=== PATIENT | female | born 1955 | race Caucasian/White ===

== ENCOUNTER 2016-12-08 19:39 | Inpatient (IN) | payer MEDICARE ==
[2016-12-08] VITALS (12 sets, daily range): BP systolic 125–193; BP diastolic 52–81
[~2016-12-08] VITALS: Ht 157.5 cm; Wt 96.8 kg
[~2016-12-08 19:39] MED LIST: ACCU-CHEK SC; AMBIEN5 MG PO; AMITIZA8 MCG PO; AMOX/K CLAV875 M1 PO; AMOXICILLIN/CL875 MG PO; AMOXICILLIN500 MG OR; ASA LOW DOSE81 MG OR; ATIVAN0.5 MG; ATIVAN0.5 MG PO; ATORVASTATIN CA40 MG PO; BACLOFEN10 MG PO; BACTRIM DS1 TAB PO; BENTYL10 MG PO; BENTYL10 MG/5 ML PO; BUSPIRONE7.5 MG PO; CHERATUSSIN OR; CIPRO500 MG OR; CIPRO500 MG PO; CIPROFLOXACIN500 M1 PO; CIPROFLOXACN500 MG PO; CRESTOR40 MG PO; DICYCLOMINE10 MG PO; DOXYCYCL HYC100 MG PO; ENALAPRIL2.5 MG; ENALAPRIL2.5 MG PO; ENBREL50 MG/ML SC; FLAGYL500 MG OR; FLAGYL500 MG PO; FLEXERIL OR; FLONASE NASAL50 MCG; FLORASTOR250 M1 PO; FOLIC ACID1 MG PO; FOLIC ACID5 MG; GLIPIZIDE10 M2 PO; HYDROCO/APAP1 T11 PO; IMDUR30 MG PO; IMODIUM2 MG PO; INSULIN SY SC; INSULIN SY0.3 MG/36 SC; ISOSORB MONO30 MG PO; LANTUS100 MG/ML SC; LORAZEPAM0.5 MG PO; LORTAB 5/3255 MG PO; MELOXICAM7.5 MG PO; METFORMIN HCL500 M1 OR; METFORMIN HCL500 M1 PO; METFORMIN1000 MG PO; METFORMIN500 M1; METFORMIN500 M2 PO; METFORMIN500 MG PO; METHOTREXATE2.5 MG OR; METOCLOPRAMIDE H5 MG OR; METRONIDAZOL500 MG PO; METRONIDAZOLE500 MG PO; MIRALAX3350 NF PO; MUPIROCIN2 % EX; NAPROSYN500 MG PO; PAROXETINE20 MG PO; PLAQUENIL200 MG PO; PRAVACHOL40 MG PO; PREDNISONE5 MG PO; PRILOSEC20 MG/CAP PO; PRILOSEC40 MG PO; REGLAN10 MG PO; REQUIP1 MG OR; RHEUMATREX2.5 M1; TRANSDERM-SCOP1.5 MG TD; TRIAMCINOLON0.11 EX; VENTOLIN HF1 IN; ZOFRAN ODT4 MG PO; [UNRECOGNIZED DRUG - REMARK]
--- NOTE | 2016-12-08 20:25 | NUR ---
MD AT BEDSIDE AT THIS TIME. PT STATES CHEST PAIN IS A 10/10 AND PRESSURE THAT STARTED ABOUT AN HOUR BEFORE ARRIVING TO ED. AWAITING MD ORDERS.
--- NOTE | 2016-12-08 20:36 | NUR ---
PATIENT C/O NAUSEA. MD AWARE, ORDERS RECEIVED AND PATIENT MEDICATED ORDERED. WILL MONITOR FOR EFFECT.
[2016-12-08 20:42] LABS: HEMATOCRIT 47.3 % (37.0-47.0); HEMOGLOBIN 16.1 g/dl (12.0-16.0); IMMATURE GRANULOCYTES 0.3 % (0.0-1.0); MEAN CELL VOLUME 87.1 fL CALC (80.0-100.0); MEAN CORPUSCULAR HGB 29.7 pG CALC (26.0-32.0); NEUT# 4.8 thou/uL (2.00-7.15); RED BLOOD COUNT 5.43 mill/uL (4.20-5.60); RED CELL DISTRI WIDTH 13.4 % (11.5-15.5)
[2016-12-08] MEDS ORDERED: TOUJEO SOL300 UNIT/M (20:45)
[2016-12-08 20:51] LABS: ALBUMIN 4.1 g/dL (3.2-5.0); ALKALINE PHOSPHATASE 91 u/l (38-126); AMYLASE 94 u/l (30-110); ANION GAP 16 (6-22 (CALC)); BILIRUBIN, TOTAL 1.4 mg/dL (0.0-1.4); BUN 14 mg/dL (7-17); BUN/CREATININE RATIO 26 (12-20 (CALC)); CALCIUM 9.9 mg/dL (8.4-10.2); CARBON DIOXIDE 25 mmol/l (22-30); CHLORIDE 106 mmol/l (95-108); CREATININE 0.5 mg/dL (0.5-1.0); GFR > 60 ML/MIN (>=60 (CALC)); GFR FOR AFR.AMER. > 60 ML/MIN (>=60 (CALC)); GLUCOSE 280 mg/dL (65-105); LIPASE 60 u/l (23-300); POTASSIUM 3.5 mmol/l (3.5-5.1); SGOT/AST 52 u/l (14-36); SGPT/ALT 64 u/l (9-52); SODIUM 142 mmol/l (137-146); TOTAL PROTEIN 7.1 g/dL (6.3-8.2)
--- NOTE | 2016-12-08 21:00 | NUR ---
PATIENT STATES NAUSEA HAS IMPROVED. STATES CHEST PAIN IS A 7 ON 1-10 PAIN SCALE.
[2016-12-08 21:02] LABS: MYOGLOBIN 39 ng/mL (0 - 62)
--- NOTE | 2016-12-08 21:14 | NUR ---
MD AT BEDSIDE TO DISCUSS ALL RESULTS AND PLANS FOR ADMISSION.
--- NOTE | 2016-12-08 22:00 | NUR ---
REPORT GIVEN TO SYLVIE CRUZ.
--- NOTE | 2016-12-08 22:15 | NUR ---
PT STATES CHEST PAIN HAS DECREASED TO 5/10. PT TRANSPORTED TO ICU VIA STRETCHER IV NITRO INFUSING AT 10 MCG/MIN AND ON SR 78 BIOMATERIALS ENGINEER ACCOMPANIED BY SHANK INSPECTOR.
--- NOTE | 2016-12-08 22:19 | NUR ---
female pt received to ICU bed 3 via stretcher accompanied by A ANTHONY Lockhart in stable condition; ambulatory to scale then bed with steady gait; weight obtained; admission assessment completed at this time; pt alert and oriented; c/c of misternal chest pressure x4 days, worse today; chest pressure radiates to left arm and jaw assoicated with nausea, diaphoresis, feeling faint; resp even and unlabored; lungs clear; skin color wnl; o2 per nc at 2L; hr reg; strong pulses; no edema noted; sr on monitor; abd soft/distended with bs present; no bm noted per scientific writer; admits to voiding without complication; no urine to inspect at this time; #20 in lac flushed and patent; no redness or edema noted at site; ntg gtt infusing at 10mcg/min, titrated to 15mcg/min; plan of care explained; pt oriented to room and call light system; will continue to monitor
--- NOTE | 2016-12-08 23:08 | NUR ---
Dr Torres informed of pt complaints of pain; orders to be placed; will continue to monitor
--- NOTE | 2016-12-08 23:10 | NUR ---
awake resting in bed; bp 208/110, hr 69; bp correlate with left arm 202/95; medicated with apresoline iv as per orders; pt denies chest pain/headache; asymptomatic; will continue to monitor
[2016-12-09] VITALS (11 sets, daily range): BP systolic 87–120; BP diastolic 40–67
--- NOTE | 2016-12-09 00:05 | NUR ---
awake; no distress noted; iv patent; ntg gtt at 5mcg/min; admits to pain relief 06/29; sr on monitor; deny needs; call light within reach; will continue to monitor
--- NOTE | 2016-12-09 00:41 | NUR ---
awake; computer lab assistant at bedside;
--- NOTE | 2016-12-09 02:09 | NUR ---
awake; no distress noted; sr on monitor; iv patent; ntg gtt at 5mcg/min; call light within reach; will continue to monitor
--- NOTE | 2016-12-09 04:09 | NUR ---
asleep; no distress noted; resp even and unlabored; iv patent; ntg gtt at 5mcg/min; o2 per nc; sb on monitor; call light within reach; will continue to monitor
--- NOTE | 2016-12-09 06:23 | NUR ---
asleep; easy to arouse; offer complaints of midsternal chest pressure rating 2/10; deny need for pain meds at this time; iv patent; no redness or edema noted at site; ntg gtt cont at 5mcg/min; assist to bathroom; o2 per nc; bed in lowest position; call light within reach
--- NOTE | 2016-12-09 06:41 | NUR ---
pt with complaints of increased chest pressure/burning after ambulating to bathroom; medicated with morphine as per request; no n/v/diaphoresis noted; admits pain radiates to left arm, left jaw and back;
[2016-12-09 06:43] LABS: URINE BILIRUBIN - DIPSTICK NEGATIVE (NEGATIVE); URINE BLOOD DIPSTICK NEGATIVE (NEGATIVE); URINE CLARITY CLEAR; URINE COLOR YELLOW; URINE GLUCOSE - DIPSTICK >=1000 mg/dL (NEGATIVE); URINE KETONE NEGATIVE (NEGATIVE); URINE LEUK ESTERASE NEGATIVE (Negative); URINE NITRITE - DIPSTICK NEGATIVE (Negative); URINE PH 5.5 (4.5-8.0); URINE PROTEIN - DIPSTICK 30 mg/dL (NEG-TRACE); URINE SPECIFIC GRAVITY >=1.030; URINE UROBILINOGEN - DIPSTICK 0.2 E.U./dL (0.2)
[2016-12-09 06:51] LABS: URINE AMORPH SEDIMENT FEW hpf (NONE-FEW); URINE BACTERIA FEW hpf; URINE CALCIUM OXALATE CRYSTALS FEW lpf; URINE MUCUS FEW hpf (NONE-FEW); URINE RBC 0-2 RBC/hpf (0-5); URINE SQUAMOUS EPITHELIAL CELL MODERATE EPI/hpf (0-FEW)
--- NOTE | 2016-12-09 07:27 | NUR ---
TROPONIN RESULT CALLED TO MD, ORDERS GIVEN, TX INITIATED PER MD ORDER
--- NOTE | 2016-12-09 07:30 | NUR ---
PT LAYING IN BED AWAKE, A & O X3, PERRL, PT STATES "I'M HAVING SOME PRESSURE IN MY CHEST IT'S ABOUT A 2", PT ASSISTED WITH REPOSITIONING FOR COMFORT, HR 52, RESP. 18, BP 98/55, O2 99% ON 2L VIA NC, LUNG SOUNDS DIMINISHED IN BASES, 20G LAC IV WITH NS AND NITRO INFUSING AT PERSCRIBED RATE, AM ASSESSMENT COMPLETE, SEE INTERVENTIONS, SAFETY MEASURES REINFORCED, CALL CLEMENT WITHIN REACH
--- NOTE | 2016-12-09 07:35 | NUR ---
SPOKE TO KIMBER FROM [facility], GAVE PT INFORMATION, FAXED FACESHEET AND RECENT EKG TO [phone]
--- NOTE | 2016-12-09 08:15 | NUR ---
KIMBER FROM [facility] CALLED WITH ACCEPTING PHYSICIAN DR. DURAN
--- NOTE | 2016-12-09 09:15 | NUR ---
CALL PLACED TO [facility] SPOKE TO KAYLA, GAVE PT INFORMATION, ETA OF 20 MINS GIVEN
--- NOTE | 2016-12-09 09:20 | NUR ---
REPORT CALLED TO YAN AT [facility]
--- NOTE | 2016-12-09 09:32 | NUR ---
DR MENDOZA AT BEDSIDE DISCUSSING PLAN OF CARE
--- NOTE | 2016-12-09 10:07 | NUR ---
Discharge instructions given. Patient verbalizes understanding of same. Discharged in stable condition via Medical Transport to [facility] by [facility]. All belongings sent with pt.
== END 2016-12-09 10:07 | disposition short-term general hospital (02) | DRG 282 ==
LOC: ED 19:39 → ED-I 21:02 → ED 21:30 → ICU 21:31
PROVIDERS: Emergency Medicine; ADMIT Internal Medicine; ATTEND Internal Medicine
DX: I21.4 Non-ST elevation (NSTEMI) myocardial infarction (principal); E11.65 Type 2 diabetes mellitus with hyperglycemia; I11.9 Hypertensive heart disease without heart failure; I25.10 Atherosclerotic heart disease of native coronary artery without angina pectoris; E78.5 Hyperlipidemia, unspecified; Z79.4 Long term (current) use of insulin; Z79.84 Long term (current) use of oral hypoglycemic drugs; Z95.1 Presence of aortocoronary bypass graft
CPT/HCPCS: S0164

== ENCOUNTER 2017-04-05 11:51 | Observation (INO) | payer MEDICARE ==
[~2017-04-05] VITALS: Ht 157.5 cm; Wt 95.7 kg
[~2017-04-05 11:51] MED LIST changes: +TOUJEO SOL300 UNIT/M
[2017-04-05] MEDS ORDERED: METRONIDAZOL500 MG PO (12:12)
[2017-04-05] MEDS ORDERED: TYLENOL325 MG PO (12:13)
[2017-04-05] MEDS ORDERED: PLAVIX75 MG PO (12:15)
[2017-04-05] MEDS ORDERED: METO50TA52 PO (12:16)
[2017-04-05] MEDS ORDERED: TIZANIDINE HCL2 MG PO (12:17)
[2017-04-05] MEDS ORDERED: DICLOFENAC SODIUM1 % (12:18)
[2017-04-05] MEDS ORDERED: [UNRECOGNIZED DRUG - OTHER] (12:19)
[2017-04-05] MEDS ORDERED: VICTOZA18 MG/3 ML SC (12:20)
[2017-04-05] MEDS ORDERED: ASPIRIN 81 LOW81 MG ×2 (12:21→12:46)
[2017-04-05 12:32] LABS: HEMATOCRIT 45.3 % (37.0-47.0); HEMOGLOBIN 15.4 g/dl (12.0-16.0); IMMATURE GRANULOCYTES 0.3 % (0.0-1.0); MEAN CELL VOLUME 86.5 fL CALC (80.0-100.0); MEAN CORPUSCULAR HGB 29.4 pG CALC (26.0-32.0); NEUT# 1.76 thou/uL (2.00-7.15); RED BLOOD COUNT 5.24 mill/uL (4.20-5.60); RED CELL DISTRI WIDTH 13.7 % (11.5-15.5)
[2017-04-05] MEDS ORDERED: TRAMADOL HYDROC50 MG PO (12:43)
[2017-04-05] MEDS ORDERED: XANAX0.25 MG PO (12:44)
[2017-04-05] MEDS ORDERED: BIOTIN5000 MC1 PO (12:45)
[2017-04-05] MEDS ORDERED: ZESTRIL5 M1 PO (12:46)
[2017-04-05 12:47] LABS: ALBUMIN 4.1 g/dL (3.2-5.0); ALKALINE PHOSPHATASE 92 u/l (38-126); ANION GAP 15 (6-22 (CALC)); BILIRUBIN, TOTAL 0.7 mg/dL (0.0-1.4); BUN 15 mg/dL (7-17); BUN/CREATININE RATIO 36 (12-20 (CALC)); CALCIUM 9.9 mg/dL (8.4-10.2); CARBON DIOXIDE 25 mmol/l (22-30); CHLORIDE 103 mmol/l (95-108); CREATININE 0.4 mg/dL (0.5-1.0); GFR > 60 ML/MIN (>=60 (CALC)); GFR FOR AFR.AMER. > 60 ML/MIN (>=60 (CALC)); GLUCOSE 246 mg/dL (65-105); POTASSIUM 4.1 mmol/l (3.5-5.1); SGOT/AST 59 u/l (14-36); SGPT/ALT 59 u/l (9-52); SODIUM 140 mmol/l (137-146); TOTAL PROTEIN 7.3 g/dL (6.3-8.2)
[2017-04-05 12:59] LABS: MYOGLOBIN 32 ng/mL (0 - 62)
[2017-04-05 15:08] LABS: URINE BILIRUBIN - DIPSTICK NEGATIVE (NEGATIVE); URINE BLOOD DIPSTICK NEGATIVE (NEGATIVE); URINE COLOR YELLOW; URINE GLUCOSE - DIPSTICK 500 mg/dL (NEGATIVE); URINE KETONE NEGATIVE (NEGATIVE); URINE LEUK ESTERASE NEGATIVE (NEGATIVE); URINE NITRITE - DIPSTICK NEGATIVE (Negative); URINE PH 6.5 (4.5-8.0); URINE PROTEIN - DIPSTICK NEGATIVE (NEG-TRACE); URINE SPECIFIC GRAVITY 1.015
[2017-04-05 15:09] LABS: URINE CLARITY CLEAR
[2017-04-05 16:16] VITALS: BP 141/82
[2017-04-05 19:25] VITALS: BP 129/76
[2017-04-06 00:25] VITALS: BP 101/57
[2017-04-06 05:07] VITALS: BP 109/68
[2017-04-06 06:15] LABS: HEMATOCRIT 45.1 % (37.0-47.0); HEMOGLOBIN 15.4 g/dl (12.0-16.0); MEAN CELL VOLUME 87.2 fL CALC (80.0-100.0); MEAN CORPUSCULAR HGB 29.8 pG CALC (26.0-32.0); MEAN CORPUSCULAR HGB CONC 34.1 g/L CALC (32.0-36.0); RED BLOOD COUNT 5.17 mill/uL (4.20-5.60); RED CELL DISTRI WIDTH 13.6 % (11.5-15.5)
[2017-04-06 06:20] LABS: CHOLESTEROL HDL RATIO 2.7 (<4.4 (CALC))
[2017-04-06 09:01] VITALS: BP 146/68
[2017-04-06] MEDS ORDERED: LISINOPRIL10 MG PO (11:42)
[2017-04-06] MEDS ORDERED: ROSUVASTATIN CA10 MG PO (11:43)
== END 2017-04-06 12:22 | disposition home or self-care (01) ==
LOC: ED 11:51 → ED-I 13:30 → ED 14:09 → MS2 14:10
PROVIDERS: Emergency Medicine; ADMIT Internal Medicine; ATTEND Internal Medicine
DX: R07.89 Other chest pain (principal); I10 Essential (primary) hypertension; E11.9 Type 2 diabetes mellitus without complications; M06.9 Rheumatoid arthritis, unspecified; F41.9 Anxiety disorder, unspecified; I25.10 Atherosclerotic heart disease of native coronary artery without angina pectoris; I25.2 Old myocardial infarction; E78.5 Hyperlipidemia, unspecified; R06.00 Dyspnea, unspecified; Z79.4 Long term (current) use of insulin; Z68.38 Body mass index [BMI] 38.0-38.9, adult; Z87.442 Personal history of urinary calculi; Z95.1 Presence of aortocoronary bypass graft; Z87.891 Personal history of nicotine dependence; Z79.82 Long term (current) use of aspirin; Z95.5 Presence of coronary angioplasty implant and graft; Z79.02 Long term (current) use of antithrombotics/antiplatelets

== ENCOUNTER 2018-05-24 00:11 | Observation (INO) | payer MEDICARE ==
[~2018-05-24] VITALS: Ht 157.5 cm; Wt 96.3 kg
[~2018-05-24 00:11] MED LIST changes: +ASPIRIN 81 LOW81 MG; +BIOTIN5000 MC1 PO; +DICLOFENAC SODIUM1 %; +LISINOPRIL10 MG PO; +METO50TA52 PO; +PLAVIX75 MG PO; +ROSUVASTATIN CA10 MG PO; +TIZANIDINE HCL2 MG PO; -TOUJEO SOL300 UNIT/M; +TOUJEO SOL300 UNIT/M SC; +TRAMADOL HYDROC50 MG PO; +TYLENOL325 MG PO; +VICTOZA18 MG/3 ML SC; +XANAX0.25 MG PO; +ZESTRIL5 M1 PO; +[UNRECOGNIZED DRUG - OTHER]
--- NOTE | 2018-05-24 00:16 | NUR ---
PT WHEELED TO ROOM 13 AND EKG OBTAINED.
[2018-05-24 01:10] LABS: HEMATOCRIT 45.4 % (37.0-47.0); HEMOGLOBIN 15.7 g/dl (12.0-16.0); MEAN CORPUSCULAR HGB 29.7 pG CALC (26.0-32.0); MEAN CORPUSCULAR HGB CONC 34.6 g/L CALC (32.0-36.0); NEUT# 2.6 thou/uL (2.00-7.15); RED BLOOD COUNT 5.28 mill/uL (4.20-5.60); RED CELL DISTRI WIDTH 13.4 % (11.5-15.5)
--- NOTE | 2018-05-24 01:10 | NUR ---
MEDICATED PT WITH TORADOL AND MORPHINE FOR PAIN AND NTG OINTMENT TO LEFT UPPER CHEST. CALL CLEMENT IN REACH.
[2018-05-24 01:21] LABS: ALKALINE PHOSPHATASE 92 u/l (38-126); AMYLASE 61 u/l (30-110); ANION GAP 15 (6-22 (CALC)); BILIRUBIN, TOTAL 0.9 mg/dL (0.0-1.4); BUN 13 mg/dL (7-17); BUN/CREATININE RATIO 36 (12-20 (CALC)); CARBON DIOXIDE 25 mmol/l (22-30); CHLORIDE 102 mmol/l (95-108); CREATININE 0.4 mg/dL (0.5-1.0); GFR > 60 ML/MIN (>=60 (CALC)); GFR FOR AFR.AMER. > 60 ML/MIN (>=60 (CALC)); LIPASE 147 u/l (23-300); POTASSIUM 3.8 mmol/l (3.5-5.1); SGOT/AST 50 u/l (14-36); SODIUM 138 mmol/l (137-146); TOTAL PROTEIN 7.1 g/dL (6.3-8.2)
[2018-05-24 01:32] LABS: MYOGLOBIN 25 ng/mL (0 - 62)
[2018-05-24 01:40] LABS: ACT PARTIAL THROMBO TIME 26.2 SECONDS (20.0-32.5); D-DIMER 0.55 mg/L (0.19-0.60); INTERNATIONAL NORMALIZED RATIO 1.1 RATIO (0.7-1.3); PROTHROMBIN TIME 11.5 SECONDS (9.0-12.5)
--- NOTE | 2018-05-24 02:01 | NUR ---
PAIN DOWN TO 4/10. NO ADVERSE REACTION TO MEDICATION B/P 114/61. PT CONSTANTLY LOOKING UP AT MONITOR.
--- NOTE | 2018-05-24 02:10 | NUR ---
ALL RESULTS ON CHART- PT TO BE ADMITTED. INFORMED PT CARDIAC ENZYMES ARE NEGATIVE AND PT STATED SHE WAS HERE IN 2017 AND WAS TOLD THE SAME THING THEN SHE WAS SENT TO [facility] AND HEART CATH DONE.
[2018-05-24] MEDS ORDERED: NADOLOL20 MG PO (02:11)
--- NOTE | 2018-05-24 03:18 | NUR ---
REPORT GIVEN TO ANTHONY REED
--- NOTE | 2018-05-24 03:32 | NUR ---
Admission Note Report Given to: ANTHONY REED Transported by: X Wheelchair Stretcher Transported with: X Nurse Transporter X Patent IV O2 X Disability Benefits Specialist
[2018-05-24 03:35] VITALS: BP 124/67
--- NOTE | 2018-05-24 03:35 | NUR ---
PT ARRIVED TO FLOOR VIA STRETCHER ACCOMPANIED BY ED NURSE. PT APPEARS TO BE IN STABLE CONDITION AT THIS TIME. PT SELF AMBULATED TO RESTROOM, STANDING SCALE AND TO THE BED. AIDE IS IN W/PT OBTAINING V/S, WEIGHT AND ORIENTING PT TO ROOM,CALL SYSTEM, LIGHTS, TV AND BED.
--- NOTE | 2018-05-24 04:10 | NUR ---
PT ASSESSED, LUNG SOUNDS ARE DIMINISHED, ABD SOFT/TENDER IN UPPER QUADRANTS BILAT, TRACE EDEMA TO LOWER EXT BILAT, SKIN INTACT, NEURO'S INTACT, LOCX4, DENIES PAIN/N/V/SOB AT THIS TIME. REPORTS THAT MORPHINE GIVEN IN ED HELPED. WILL CONTINUE TO MONITOR, PT ENCOURAGED TO CALL W/ANY CHANGES OR SYMPTOMS. CALL LIGHT AT BEDSIDE. POC DISCUSSED AT THIS TIME.
--- NOTE | 2018-05-24 06:07 | NUR ---
PT MEDICATED ORDERS PROVIDE. PT DENIES ANY SOB OR PAIN AT THIS TIME. LAB WAS JUST IN W/PT AND NOW RESPIRATORY FOR EKG. WILL CONTINUE TO MONITOR. PT DENIES ANY OTHER NEEDS AT THIS TIME.
[2018-05-24 08:00] VITALS: BP 110/56
--- NOTE | 2018-05-24 08:00 | NUR ---
PT RESTING IN THE BED, NO COMPLAINTS OF CHEST PAIN OR SHORTNESS OF BREATH. SECOND TROPONIN LEVEL DRAWN, AWAITING RESULTS.
--- NOTE | 2018-05-24 12:00 | NUR ---
PT SEEN BY NURSE PRACTITIONER, PROVIDED NTG SL WHICH MADE HER PAIN GO AWAY.
[2018-05-24 12:07] VITALS: BP 140/68
[2018-05-24 14:09] LABS: URINE BILIRUBIN - DIPSTICK NEGATIVE (NEGATIVE); URINE BLOOD DIPSTICK NEGATIVE (NEGATIVE); URINE GLUCOSE - DIPSTICK >=1000 mg/dL (NEGATIVE); URINE KETONE NEGATIVE (NEGATIVE); URINE LEUK ESTERASE NEGATIVE (NEGATIVE); URINE NITRITE - DIPSTICK NEGATIVE (Negative); URINE PH 5.5 (4.5-8.0); URINE PROTEIN - DIPSTICK NEGATIVE (NEG-TRACE); URINE SPECIFIC GRAVITY >=1.030; URINE UROBILINOGEN - DIPSTICK 0.2 E.U./dL (0.2)
[2018-05-24 14:11] LABS: URINE COLOR DK. YELLOW
[2018-05-24 16:02] VITALS: BP 113/52
--- NOTE | 2018-05-24 17:45 | NUR ---
PT CONTNUES WITH RIGHT SHOULDER PAIN. EKG DONE, ULTRAM AND, LATER, LORTAB PROVIDED FOR RELIEF. PT ENCOURAGED TO SIT IN CHAIR FOR A WHILE.
--- NOTE | 2018-05-24 19:18 | NUR ---
BEDSIDE REPORT RECEIVED FROM DAY NURSE. UPON ENTERING ROOM PT WAS UP WALKING AROUND PLUGGING IN CELL PHONE. SHE REPORTS MILD DISCOMFORT IN RIGHT SHOULDER RADIATING DOWN RIGHT ARM. WILL FOLLOW-UP W/FULL ASSESSMENT AND MEDICATIONS ORDERS PROVIDE.
[2018-05-24 19:25] VITALS: BP 103/65
--- NOTE | 2018-05-24 20:30 | NUR ---
PT MEDICATED ORDERS PROVIDE. PT IS IN CHAIR WATCHING TV AND READING. POC AND MEDICATIONS DISCUSSED W/PT. ICE PROVIDED. DENIES ANY OTHER NEEDS, CALL LIGHT IN HAND
--- NOTE | 2018-05-24 23:55 | NUR ---
PT MEDICATED FOR PAIN REPORTED 10/10 IN RIGHT SHOULDER, NO S/O DISTRESS, PT IS AWAKE, IN HIGH FOWLERS POSITION, APPEARS CALM AND IS WATCHING TV. V/S ASSESSED, BP 114/58, HR 62, 02SAT 94% ON RA, TEMP 97.7. WILL CONTINUE TO MONITOR.
[2018-05-24 23:57] VITALS: BP 114/58
--- NOTE | 2018-05-25 02:25 | NUR ---
PT APPEARS TO BE SLEEPING AT THIS TIME. NO S/O DISTRESS. CALL LIGHT AT SIDE.
[2018-05-25 04:05] VITALS: BP 99/61
[2018-05-25 06:08] LABS: HEMATOCRIT 42.3 % (37.0-47.0); HEMOGLOBIN 14.2 g/dl (12.0-16.0); IMMATURE GRANULOCYTES 0.3 % (0.0-5.0); MEAN CELL VOLUME 88.3 fL CALC (80.0-100.0); MEAN CORPUSCULAR HGB 29.6 pG CALC (26.0-32.0); MEAN CORPUSCULAR HGB CONC 33.6 g/L CALC (32.0-36.0); NEUT# 1.83 thou/uL (2.00-7.15); RED BLOOD COUNT 4.79 mill/uL (4.20-5.60); RED CELL DISTRI WIDTH 13.5 % (11.5-15.5)
[2018-05-25 06:33] LABS: ALBUMIN 3.2 g/dL (3.2-5.0); ALKALINE PHOSPHATASE 68 u/l (38-126); AMYLASE 48 u/l (30-110); ANION GAP 11 (6-22 (CALC)); BILIRUBIN, TOTAL 0.9 mg/dL (0.0-1.4); BUN 18 mg/dL (7-17); BUN/CREATININE RATIO 41 (12-20 (CALC)); CARBON DIOXIDE 26 mmol/l (22-30); CHLORIDE 103 mmol/l (95-108); CREATININE 0.4 mg/dL (0.5-1.0); GFR > 60 ML/MIN (>=60 (CALC)); GFR FOR AFR.AMER. > 60 ML/MIN (>=60 (CALC)); LIPASE 97 u/l (23-300); MAGNESIUM 1.4 mg/dL (1.6-2.3); SGOT/AST 44 u/l (14-36); SODIUM 137 mmol/l (137-146); TOTAL PROTEIN 5.9 g/dL (6.3-8.2)
[2018-05-25 07:51] VITALS: BP 96/46
--- NOTE | 2018-05-25 07:58 | NUR ---
REPORT RECEIVED FROM ANTHONY REED. PT SITTING UPRIGHT IN BED. DENIES CHEST PAIN. REPORTS LROM AND SORENESS TO RIGHT ARM/SHOULDER. REPORTING OF CONCERNS ENCORUAGED. PLAN OF CARE DISCUSSED. CALL LIGHT REVIEWED AND IN REACH. PT STATES UNDERSTANDING.
[2018-05-25 11:30] VITALS: BP 114/52
--- NOTE | 2018-05-25 13:05 | NUR ---
DR. LINDER AND AMARILIS BALTAZAR IN TO SEE PT AT THIS TIME.
--- NOTE | 2018-05-25 16:27 | NUR ---
PT SITTING ON SIDE OF BED. VISITOR PRESENT. PT INQUIRING ABOUT CHF. DISEASE PROCESS AND TX REVIEWED W/ PT. PT STATES UNDERSTANDING.
[2018-05-25 16:57] VITALS: BP 106/60
[2018-05-25 19:27] VITALS: BP 122/71
--- NOTE | 2018-05-25 19:30 | NUR ---
PT MEDICATED FOR PAIN AND PM MEDS ORDERED. PAIN REPORTED 7/10 IN R.FLANK AND RIGHT UPPER SHOULDER. PT IS HIGH FOWLERS POSITION W/LIGHTS OUT WATCHING THE Datical GAME ON TV. PT ASSESSED, LUNG SOUNDS DIMINISHED THROUGHOUT/CLEAR UPPER LOBES BILAT. ABD TENDER IN BILAT UPPER QUADS AND RIGHT LQ, DIST/SOFT W/HYPOACTIVE BOWEL SOUND. REPORTS BM 1X TODAY NORMAL IN APPEARANCE. NO S/O DISTRESS NOTED AT THIS TIME. PT DENIES ANY OTHER NEEDS AND CALL LIGHT IN HAND.
--- NOTE | 2018-05-25 21:40 | NUR ---
PT MEDICATED ORDERS PROVIDE FOR BLOOD SUGAR 224. PT DENIES ANY OTHER NEEDS AT THIS TIME. REPORTS RELIEF FROM PAIN FROM PAIN MEDICATIONS 2/10 AT THIS TIME. CALL LIGHT IN HAND, LIGHTS ARE DOWN LOW, TV ON.
[2018-05-26 00:12] VITALS: BP 121/79
--- NOTE | 2018-05-26 02:40 | NUR ---
PT APPEARS TO BE SLEEPING AT THIS TIME. DID NOT AWAKE TO MY ENTERING ROOM. NO S/O DISTRESS NOTED. CALL LIG IS AT BEDSIDE.
[2018-05-26 04:15] VITALS: BP 115/66
[2018-05-26 05:29] LABS: HEMATOCRIT 44.7 % (37.0-47.0); HEMOGLOBIN 15.1 g/dl (12.0-16.0); IMMATURE GRANULOCYTES 0.3 % (0.0-5.0); MEAN CELL VOLUME 88.2 fL CALC (80.0-100.0); MEAN CORPUSCULAR HGB 29.8 pG CALC (26.0-32.0); MEAN CORPUSCULAR HGB CONC 33.8 g/L CALC (32.0-36.0); NEUT# 1.6 thou/uL (2.00-7.15); RED BLOOD COUNT 5.07 mill/uL (4.20-5.60); RED CELL DISTRI WIDTH 13.2 % (11.5-15.5)
[2018-05-26 05:51] LABS: ALBUMIN 3.5 g/dL (3.2-5.0); ALKALINE PHOSPHATASE 72 u/l (38-126); AMYLASE 51 u/l (30-110); ANION GAP 10 (6-22 (CALC)); BUN 16 mg/dL (7-17); BUN/CREATININE RATIO 41 (12-20 (CALC)); CARBON DIOXIDE 30 mmol/l (22-30); CHLORIDE 101 mmol/l (95-108); CREATININE 0.4 mg/dL (0.5-1.0); GFR > 60 ML/MIN (>=60 (CALC)); GFR FOR AFR.AMER. > 60 ML/MIN (>=60 (CALC)); LIPASE 96 u/l (23-300); MAGNESIUM 1.6 mg/dL (1.6-2.3); SGOT/AST 39 u/l (14-36); SODIUM 137 mmol/l (137-146); TOTAL PROTEIN 6.3 g/dL (6.3-8.2)
[2018-05-26 07:54] VITALS: BP 122/57
--- NOTE | 2018-05-26 08:03 | NUR ---
SHIFT CHANGE REPORT, PT SLEEPING LIGHTLY BUT AWAKENED TO VERBAL STIMULI, ORIENTED, C/O TIGHTNESS TO CHEST, TELE MONITOR IN PLACE, WILL CONTINUE TO MONITOR.
[2018-05-26 11:45] VITALS: BP 124/65
--- NOTE | 2018-05-26 11:56 | NUR ---
RESTING IN BED, DR KAILASH SELBY, DISCUSSED PLAN OF CARE TO D/C TODAY ON HOME MEDS AND FOLLOW-UP WITH INDUSTRIAL ELECTRICAL TECHNICIAN AND CENTRAL SUPPLY WORKER, PT STATED UNDERSTANDING.
--- NOTE | 2018-05-26 15:31 | NUR ---
Discharge instructions given. Patient verbalizes understanding of same. Discharged in good condition via Ambulatory to Home with family. All belongings sent with pt. REQUESTED TO AMBULATE OFF UNIT.
== END 2018-05-26 15:41 | disposition home or self-care (01) ==
LOC: ED 00:11 → ED-I 01:00 → ED 02:10 → MS2 02:11
PROVIDERS: Family Medicine; Nurse Practitioner Family; ADMIT Internal Medicine Nephrology; ATTEND Internal Medicine Nephrology
DX: R07.89 Other chest pain (principal); I25.10 Atherosclerotic heart disease of native coronary artery without angina pectoris; K76.6 Portal hypertension; K74.60 Unspecified cirrhosis of liver; E78.5 Hyperlipidemia, unspecified; E11.9 Type 2 diabetes mellitus without complications; K21.9 Gastro-esophageal reflux disease without esophagitis; I11.0 Hypertensive heart disease with heart failure; I50.9 Heart failure, unspecified; J44.9 Chronic obstructive pulmonary disease, unspecified; K75.81 Nonalcoholic steatohepatitis (NASH); I25.2 Old myocardial infarction; E66.9 Obesity, unspecified; Z68.39 Body mass index [BMI] 39.0-39.9, adult; Z95.5 Presence of coronary angioplasty implant and graft; Z95.1 Presence of aortocoronary bypass graft; Z87.891 Personal history of nicotine dependence; Z90.49 Acquired absence of other specified parts of digestive tract; Z79.4 Long term (current) use of insulin; R06.02 Shortness of breath
CPT/HCPCS: J3475

== ENCOUNTER → 2018-06-12 | Outpatient (REF) | payer MEDICARE ==
[~2018-06-12] MED LIST changes: +NADOLOL20 MG PO
== END | disposition home or self-care (01) ==
LOC: ULTRASND 12:38
PROVIDERS: ATTEND Nurse Practitioner
DX: R60.0 Localized edema (principal); M79.89 Other specified soft tissue disorders; M79.605 Pain in left leg

== ENCOUNTER 2019-07-01 | Emergency (ER) | payer MEDICARE ==
[2019-07-01 15:11] LABS: URINE BILIRUBIN - DIPSTICK NEGATIVE (NEGATIVE); URINE BLOOD DIPSTICK TRACE-INTACT (NEGATIVE); URINE COLOR YELLOW; URINE GLUCOSE - DIPSTICK >=1000 mg/dL (NEGATIVE); URINE KETONE NEGATIVE (NEGATIVE); URINE LEUK ESTERASE NEGATIVE (NEGATIVE); URINE NITRITE - DIPSTICK NEGATIVE (Negative); URINE PROTEIN - DIPSTICK TRACE mg/dL (NEG-TRACE); URINE SPECIFIC GRAVITY >=1.030; URINE UROBILINOGEN - DIPSTICK 0.2 E.U./dL (0.2)
[2019-07-01 15:18] LABS: HEMATOCRIT 49.4 % (37.0-47.0); HEMOGLOBIN 16.5 g/dl (12.0-16.0); IMMATURE GRANULOCYTES 0.1 % (0.0-5.0); MEAN CELL VOLUME 87.3 fL CALC (80.0-100.0); MEAN CORPUSCULAR HGB 29.2 pG CALC (26.0-32.0); MEAN CORPUSCULAR HGB CONC 33.4 g/L CALC (32.0-36.0); NEUT# 5.9 thou/uL (2.00-7.15); RED BLOOD COUNT 5.66 mill/uL (4.20-5.60)
[2019-07-01 15:25] LABS: ALBUMIN 4.5 g/dL (3.2-5.0); ALKALINE PHOSPHATASE 111 u/l (38-126); AMYLASE 66 u/l (30-110); ANION GAP 15 (6-22 (CALC)); BUN 17 mg/dL (8-23); BUN/CREATININE RATIO 63 (12-20 (CALC)); CARBON DIOXIDE 21 mmol/l (22-30); CHLORIDE 103 mmol/l (95-108); CREATININE 0.3 mg/dL (0.5-1.0); GFR > 60 ML/MIN (>=60 (CALC)); GFR FOR AFR.AMER. > 60 ML/MIN (>=60 (CALC)); LIPASE 40 u/l (23-300); POTASSIUM 4.8 mmol/l (3.5-5.1); SGOT/AST 65 u/l (9-36); SODIUM 134 mmol/l (137-146); TOTAL PROTEIN 8.2 g/dL (6.3-8.2)
[2019-07-01 15:32] LABS: BILIRUBIN, TOTAL 1.8 mg/dL (0.0-1.4)
== END 2019-07-01 17:55 | disposition home or self-care (01) ==
PROVIDERS: Family Medicine
DX: K52.9 Noninfective gastroenteritis and colitis, unspecified (principal); I10 Essential (primary) hypertension; E11.9 Type 2 diabetes mellitus without complications; K74.60 Unspecified cirrhosis of liver; I25.2 Old myocardial infarction; Z95.5 Presence of coronary angioplasty implant and graft; Z79.4 Long term (current) use of insulin; Z95.1 Presence of aortocoronary bypass graft
CPT/HCPCS: Q9967

== ENCOUNTER 2019-09-19 06:48 | Emergency (ER) | payer MEDICARE ==
[2019-09-19 07:21] LABS: HEMATOCRIT 41.7 % (37.0-47.0); HEMOGLOBIN 13.9 g/dl (12.0-16.0); MEAN CELL VOLUME 88.2 fL CALC (80.0-100.0); MEAN CORPUSCULAR HGB 29.4 pG CALC (26.0-32.0); MEAN CORPUSCULAR HGB CONC 33.3 g/dL CAL (32.0-36.0); NEUT# 1.89 thou/uL (2.00-7.15); RED BLOOD COUNT 4.73 mill/uL (4.20-5.60); RED CELL DISTRI WIDTH 13.2 % (11.5-15.5)
[2019-09-19] MEDS ORDERED: PROTONIX40 M2 PO (07:26)
[2019-09-19] MEDS ORDERED: ATIVAN0.5 MG PO (07:27)
[2019-09-19] MEDS ORDERED: GABAPENTIN100 MG PO (07:27)
[2019-09-19] MEDS ORDERED: TIZANIDINE2 MG PO (07:28)
[2019-09-19] MEDS ORDERED: LISINOPRIL10 MG PO (07:29)
[2019-09-19 07:35] LABS: INTERNATIONAL NORMALIZED RATIO 1.1 RATIO (0.7-1.3); PROTHROMBIN TIME 11.6 SECONDS (9.0-12.5)
[2019-09-19 07:36] LABS: ALBUMIN 3.7 g/dL (3.2-5.0); ALKALINE PHOSPHATASE 79 u/l (38-126); AMYLASE 79 u/l (30-110); ANION GAP 9 (6-22 (CALC)); BILIRUBIN, TOTAL 0.6 mg/dL (0.0-1.4); BUN 14 mg/dL (8-23); BUN/CREATININE RATIO 42 (12-20 (CALC)); CARBON DIOXIDE 27 mmol/l (22-30); CHLORIDE 104 mmol/l (95-108); CREATININE 0.3 mg/dL (0.5-1.0); GFR > 60 ML/MIN (>=60 (CALC)); GFR FOR AFR.AMER. > 60 ML/MIN (>=60 (CALC)); LIPASE 68 u/l (23-300); POTASSIUM 3.8 mmol/l (3.5-5.1); SGOT/AST 43 u/l (9-36); SODIUM 136 mmol/l (137-146); TOTAL PROTEIN 6.9 g/dL (6.3-8.2)
[2019-09-19 07:48] LABS: MYOGLOBIN 20 ng/mL (0 - 62)
[2019-09-19 08:47] LABS: URINE BILIRUBIN - DIPSTICK NEGATIVE (NEGATIVE); URINE BLOOD DIPSTICK NEGATIVE (NEGATIVE); URINE COLOR YELLOW; URINE GLUCOSE - DIPSTICK NEGATIVE (NEGATIVE); URINE KETONE NEGATIVE (NEGATIVE); URINE LEUK ESTERASE NEGATIVE (NEGATIVE); URINE NITRITE - DIPSTICK NEGATIVE (Negative); URINE PROTEIN - DIPSTICK NEGATIVE (NEG-TRACE); URINE SPECIFIC GRAVITY 1.025
[2019-09-19] MEDS ORDERED: ULTRAM50 M1 PO (09:27)
[2019-09-19] MEDS ORDERED: ONDANSETRON4 MG PO ×2 (09:27)
[2019-09-19 09:41] VITALS: BP 113/43
== END 2019-09-19 09:41 | disposition home or self-care (01) ==
LOC: ED 06:48
PROVIDERS: Emergency Medicine
DX: K52.9 Noninfective gastroenteritis and colitis, unspecified (principal); K74.60 Unspecified cirrhosis of liver; I10 Essential (primary) hypertension; E11.9 Type 2 diabetes mellitus without complications; I25.2 Old myocardial infarction; Z95.5 Presence of coronary angioplasty implant and graft; Z79.4 Long term (current) use of insulin

== ENCOUNTER 2019-10-22 09:06 | Emergency (ER) | payer MEDICARE ==
[~2019-10-22] VITALS: Ht 157.5 cm; Wt 93.0 kg
[~2019-10-22 09:06] MED LIST changes: +GABAPENTIN100 MG PO; +ONDANSETRON4 MG PO; +PROTONIX40 M2 PO; +TIZANIDINE2 MG PO; +ULTRAM50 M1 PO
[2019-10-22] MEDS ORDERED: CIPROFLOXACN500 MG PO ×2 (09:55)
[2019-10-22] MEDS ORDERED: BACTRIM DS1 TAB PO ×2 (09:55)
[2019-10-22] MEDS ORDERED: ZOFRAN4 M1 PO (10:44)
[2019-10-22 11:16] VITALS: BP 108/68
[2019-10-23] MEDS ORDERED: LISINOPRIL5 MG PO (16:31)
[2019-10-23] MEDS ORDERED: ASPIRIN 8181 MG PO (16:34)
[2019-10-23] MEDS ORDERED: LANTUS SOL100 UNIT/M SC (16:38)
== END 2019-10-22 11:15 | disposition home or self-care (01) ==
LOC: ED 09:06
PROC: 0U9MXZZ Drainage of Vulva, External Approach (ICD-10-PCS; principal; 2019-10-22)
DX: N76.4 Abscess of vulva (principal); I10 Essential (primary) hypertension; E11.9 Type 2 diabetes mellitus without complications; I25.2 Old myocardial infarction; B95.62 Methicillin resistant Staphylococcus aureus infection as the cause of diseases classified elsewhere; Z95.1 Presence of aortocoronary bypass graft; Z95.5 Presence of coronary angioplasty implant and graft; Z79.4 Long term (current) use of insulin; Z88.1 Allergy status to other antibiotic agents

== ENCOUNTER 2019-10-23 13:44 | Inpatient (IN) | payer MEDICARE ==
[~2019-10-23] VITALS: Ht 157.5 cm; Wt 96.8 kg
[~2019-10-23 13:44] MED LIST changes: +ZOFRAN4 M1 PO
[2019-10-23 15:01] LABS: GFR > 60 ML/MIN (>=60 (CALC)); GFR FOR AFR.AMER. > 60 ML/MIN (>=60 (CALC))
[2019-10-23 15:03] LABS: HEMOGLOBIN 14.6 g/dl (12.0-16.0); IMMATURE GRANULOCYTES 0.1 % (0.0-5.0); MEAN CELL VOLUME 88.7 fL CALC (80.0-100.0); MEAN CORPUSCULAR HGB 29.4 pG CALC (26.0-32.0); MEAN CORPUSCULAR HGB CONC 33.2 g/dL CAL (32.0-36.0); NEUT# 6.02 thou/uL (2.00-7.15); RED BLOOD COUNT 4.96 mill/uL (4.20-5.60); RED CELL DISTRI WIDTH 13.1 % (11.5-15.5)
[2019-10-23 15:22] LABS: ALKALINE PHOSPHATASE 100 u/l (38-126); ANION GAP 11 (6-22 (CALC)); BUN 12 mg/dL (8-23); BUN/CREATININE RATIO 28 (12-20 (CALC)); CARBON DIOXIDE 27 mmol/l (22-30); CHLORIDE 99 mmol/l (95-108); CREATININE 0.4 mg/dL (0.5-1.0); GFR > 60 ML/MIN (>=60 (CALC)); GFR FOR AFR.AMER. > 60 ML/MIN (>=60 (CALC)); POTASSIUM 4.1 mmol/l (3.5-5.1); SGOT/AST 41 u/l (9-36); SODIUM 133 mmol/l (137-146)
[2019-10-23 15:32] LABS: BILIRUBIN, TOTAL 1.4 mg/dL (0.0-1.4)
[2019-10-23] MEDS ORDERED: LISINOPRIL5 MG PO (16:31)
[2019-10-23] MEDS ORDERED: ASPIRIN 8181 MG PO (16:34)
[2019-10-23] MEDS ORDERED: LANTUS SOL100 UNIT/M SC (16:38)
[2019-10-23 18:27] VITALS: BP 126/73
[2019-10-24 04:05] VITALS: BP 108/62
[2019-10-24 07:35] VITALS: BP 132/75
[2019-10-24 14:45] VITALS: BP 108/95
[2019-10-24 18:46] VITALS: BP 152/84
[2019-10-25 03:55] VITALS: BP 98/55
[2019-10-25 07:42] VITALS: BP 101/48
[2019-10-25 09:53] VITALS: BP 103/42
[2019-10-25 15:00] VITALS: BP 113/70
[2019-10-25 19:15] VITALS: BP 98/55
[2019-10-26 03:12] VITALS: BP 112/56
[2019-10-26 07:55] VITALS: BP 114/57
[2019-10-26 10:30] VITALS: BP 167/110
[2019-10-26 15:00] VITALS: BP 148/67
[2019-10-26 20:16] VITALS: BP 152/82
[2019-10-27] VITALS (10 sets, daily range): BP systolic 112–152; BP diastolic 55–76
[2019-10-27 07:28] LABS: HEMATOCRIT 43.6 % (37.0-47.0); HEMOGLOBIN 14.6 g/dl (12.0-16.0); IMMATURE GRANULOCYTES 0.7 % (0.0-5.0); MEAN CELL VOLUME 87.6 fL CALC (80.0-100.0); MEAN CORPUSCULAR HGB 29.3 pG CALC (26.0-32.0); MEAN CORPUSCULAR HGB CONC 33.5 g/dL CAL (32.0-36.0); NEUT# 2.79 thou/uL (2.00-7.15); RED BLOOD COUNT 4.98 mill/uL (4.20-5.60); RED CELL DISTRI WIDTH 13.1 % (11.5-15.5)
[2019-10-27 08:01] LABS: ANION GAP 11 (6-22 (CALC)); BUN 8 mg/dL (8-23); BUN/CREATININE RATIO 20 (12-20 (CALC)); CARBON DIOXIDE 25 mmol/l (22-30); CHLORIDE 106 mmol/l (95-108); CREATININE 0.4 mg/dL (0.5-1.0); GFR > 60 ML/MIN (>=60 (CALC)); GFR FOR AFR.AMER. > 60 ML/MIN (>=60 (CALC)); POTASSIUM 3.8 mmol/l (3.5-5.1); SODIUM 138 mmol/l (137-146)
[2019-10-28 04:10] VITALS: BP 99/47
[2019-10-28 07:34] VITALS: BP 114/51
[2019-10-28 15:00] VITALS: BP 122/48
[2019-10-28 19:20] VITALS: BP 122/63
[2019-10-29 03:55] VITALS: BP 130/67
[2019-10-29 09:20] VITALS: BP 125/65
[2019-10-29 11:39] LABS: CREATININE 2.1 mg/dL (0.5-1.0)
[2019-10-29 15:00] VITALS: BP 153/78
[2019-10-29 19:10] VITALS: BP 140/72
[2019-10-30 03:35] VITALS: BP 133/74
[2019-10-30 07:45] VITALS: BP 117/54
[2019-10-30 10:18] LABS: CREATININE 2.5 mg/dL (0.5-1.0)
[2019-10-30 16:43] VITALS: BP 147/73
[2019-10-30 19:11] VITALS: BP 158/84
[2019-10-31 04:30] VITALS: BP 106/72
[2019-10-31 04:36] LABS: MEAN CELL VOLUME 89.6 fL CALC (80.0-100.0); MEAN CORPUSCULAR HGB 29.3 pG CALC (26.0-32.0); MEAN CORPUSCULAR HGB CONC 32.7 g/dL CAL (32.0-36.0); RED BLOOD COUNT 3.93 mill/uL (4.20-5.60); RED CELL DISTRI WIDTH 12.8 % (11.5-15.5)
[2019-10-31 04:42] LABS: CREATININE 2.5 mg/dL (0.5-1.0); HEMATOCRIT 35.2 % (37.0-47.0); HEMOGLOBIN 11.5 g/dl (12.0-16.0); POTASSIUM 3.8 mmol/l (3.5-5.1)
[2019-10-31 07:35] VITALS: BP 111/48
[2019-10-31 15:56] VITALS: BP 126/88
[2019-10-31 18:59] VITALS: BP 125/63
[2019-11-01 04:22] VITALS: BP 94/58
[2019-11-01 05:25] LABS: CREATININE 2.8 mg/dL (0.5-1.0)
[2019-11-01 07:31] VITALS: BP 101/54
[2019-11-01 15:51] VITALS: BP 114/54
[2019-11-01 19:45] VITALS: BP 130/68
[2019-11-02 04:35] VITALS: BP 126/71
[2019-11-02 05:09] LABS: HEMATOCRIT 36.4 % (37.0-47.0); HEMOGLOBIN 11.8 g/dl (12.0-16.0); IMMATURE GRANULOCYTES 0.3 % (0.0-5.0); MEAN CELL VOLUME 89.7 fL CALC (80.0-100.0); MEAN CORPUSCULAR HGB 29.1 pG CALC (26.0-32.0); MEAN CORPUSCULAR HGB CONC 32.4 g/dL CAL (32.0-36.0); NEUT# 5.84 thou/uL (2.00-7.15); RED BLOOD COUNT 4.06 mill/uL (4.20-5.60); RED CELL DISTRI WIDTH 12.9 % (11.5-15.5)
[2019-11-02 05:18] LABS: ALBUMIN 3.1 g/dL (3.2-5.0); CREATININE 2.7 mg/dL (0.5-1.0); TOTAL PROTEIN 5.8 g/dL (6.3-8.2)
[2019-11-02 05:19] LABS: BILIRUBIN, TOTAL 0.6 mg/dL (0.0-1.4)
[2019-11-02 07:53] VITALS: BP 135/53
[2019-11-02 15:00] VITALS: BP 149/67
[2019-11-02 19:15] VITALS: BP 141/73
[2019-11-03 03:40] VITALS: BP 117/60
[2019-11-03 05:24] LABS: ALBUMIN 3.1 g/dL (3.2-5.0); CREATININE 2.7 mg/dL (0.5-1.0); POTASSIUM 3.7 mmol/l (3.5-5.1)
[2019-11-03 08:11] VITALS: BP 133/67
[2019-11-03 15:00] VITALS: BP 160/83
[2019-11-03 19:48] VITALS: BP 135/63
[2019-11-04 04:12] VITALS: BP 123/61
[2019-11-04 04:58] LABS: HEMATOCRIT 36.5 % (37.0-47.0); HEMOGLOBIN 12.1 g/dl (12.0-16.0); MEAN CELL VOLUME 88.2 fL CALC (80.0-100.0); MEAN CORPUSCULAR HGB 29.2 pG CALC (26.0-32.0); MEAN CORPUSCULAR HGB CONC 33.2 g/dL CAL (32.0-36.0); RED BLOOD COUNT 4.14 mill/uL (4.20-5.60); RED CELL DISTRI WIDTH 12.6 % (11.5-15.5)
[2019-11-04 05:25] LABS: ALBUMIN 3.2 g/dL (3.2-5.0); BILIRUBIN, TOTAL 0.6 mg/dL (0.0-1.4); CREATININE 2.6 mg/dL (0.5-1.0); POTASSIUM 3.7 mmol/l (3.5-5.1); TOTAL PROTEIN 5.8 g/dL (6.3-8.2)
[2019-11-04 05:39] LABS: ALBUMIN 3.1 g/dL (3.2-5.0); CREATININE 2.6 mg/dL (0.5-1.0); POTASSIUM 3.7 mmol/l (3.5-5.1)
[2019-11-04 07:57] VITALS: BP 156/82
[2019-11-04 16:49] VITALS: BP 132/67
[2019-11-04 19:40] VITALS: BP 138/76
[2019-11-05 04:30] VITALS: BP 115/64
[2019-11-05 05:01] LABS: HEMATOCRIT 37.6 % (37.0-47.0); HEMOGLOBIN 12.4 g/dl (12.0-16.0); MEAN CELL VOLUME 88.3 fL CALC (80.0-100.0); MEAN CORPUSCULAR HGB 29.1 pG CALC (26.0-32.0); RED BLOOD COUNT 4.26 mill/uL (4.20-5.60); RED CELL DISTRI WIDTH 12.5 % (11.5-15.5)
[2019-11-05 05:26] LABS: ALBUMIN 3.5 g/dL (3.2-5.0); BILIRUBIN, TOTAL 0.6 mg/dL (0.0-1.4); CREATININE 2.5 mg/dL (0.5-1.0); POTASSIUM 3.6 mmol/l (3.5-5.1); TOTAL PROTEIN 6.2 g/dL (6.3-8.2)
[2019-11-05 08:00] VITALS: BP 119/66
[2019-11-05] MEDS ORDERED: LASIX 40 MG TAB40 MG PO (14:00)
== END 2019-11-05 16:15 | disposition home or self-care (01) | DRG 746 ==
LOC: ED 13:44 → ED-I 16:31 → ED 16:44 → ED-I 16:45 → MS2 17:48
PROVIDERS: Family Medicine; Internal Medicine Nephrology; Nurse Practitioner Family; ADMIT Internal Medicine; ATTEND Internal Medicine
PROC: 0U9M0ZZ Drainage of Vulva, Open Approach (ICD-10-PCS; principal; 2019-10-27)
DX: N76.2 Acute vulvitis (principal); N17.0 Acute kidney failure with tubular necrosis; E22.2 Syndrome of inappropriate secretion of antidiuretic hormone; K76.6 Portal hypertension; N76.4 Abscess of vulva; I10 Essential (primary) hypertension; E11.40 Type 2 diabetes mellitus with diabetic neuropathy, unspecified; I25.10 Atherosclerotic heart disease of native coronary artery without angina pectoris; K74.60 Unspecified cirrhosis of liver; E78.5 Hyperlipidemia, unspecified; K21.9 Gastro-esophageal reflux disease without esophagitis; T36.8X5A Adverse effect of other systemic antibiotics, initial encounter; T45.515A Adverse effect of anticoagulants, initial encounter; D69.59 Other secondary thrombocytopenia; E83.39 Other disorders of phosphorus metabolism; D64.9 Anemia, unspecified; E87.70 Fluid overload, unspecified; I95.9 Hypotension, unspecified; I25.2 Old myocardial infarction; B95.62 Methicillin resistant Staphylococcus aureus infection as the cause of diseases classified elsewhere; Z87.891 Personal history of nicotine dependence; Z90.49 Acquired absence of other specified parts of digestive tract; Z95.1 Presence of aortocoronary bypass graft; Z95.5 Presence of coronary angioplasty implant and graft; Z79.4 Long term (current) use of insulin; Z20.828 Contact with and (suspected) exposure to other viral communicable diseases; E66.9 Obesity, unspecified; Z68.37 Body mass index [BMI] 37.0-37.9, adult
CPT/HCPCS: G0378; J0131; J1650; J2020; J3370; Q3014; Q9967

== ENCOUNTER 2020-02-18 07:53 | Emergency (ER) | payer OTHER, MEDICARE ==
[~2020-02-18] VITALS: Ht 157.5 cm; Wt 70.0 kg
[~2020-02-18 07:53] MED LIST changes: +ASPIRIN 8181 MG PO; +LANTUS SOL100 UNIT/M SC; +LASIX 40 MG TAB40 MG PO; +LISINOPRIL5 MG PO
[2020-02-18 09:02] LABS: IMMATURE GRANULOCYTES 0.5 % (0.0-5.0); MEAN CELL VOLUME 87.6 fL CALC (80.0-100.0); MEAN CORPUSCULAR HGB CONC 33.1 g/dL CAL (32.0-36.0); NEUT# 2.51 thou/uL (2.00-7.15); RED BLOOD COUNT 5.07 mill/uL (4.20-5.60); RED CELL DISTRI WIDTH 13.2 % (11.5-15.5)
[2020-02-18 09:04] LABS: HEMATOCRIT 44.4 % (37.0-47.0); HEMOGLOBIN 14.7 g/dl (12.0-16.0)
[2020-02-18 09:22] LABS: ALBUMIN 3.8 g/dL (3.2-5.0); ALKALINE PHOSPHATASE 99 u/l (38-126); ANION GAP 9 (6-22 (CALC)); BILIRUBIN, TOTAL 0.9 mg/dL (0.0-1.4); BUN 18 mg/dL (8-23); BUN/CREATININE RATIO 49 (12-20 (CALC)); CARBON DIOXIDE 26 mmol/l (22-30); CHLORIDE 105 mmol/l (95-108); CREATININE 0.4 mg/dL (0.5-1.0); GFR > 60 ML/MIN (>=60 (CALC)); GFR FOR AFR.AMER. > 60 ML/MIN (>=60 (CALC)); POTASSIUM 4.3 mmol/l (3.5-5.1); SGOT/AST 57 u/l (9-36); SODIUM 136 mmol/l (137-146)
[2020-02-18 09:33] VITALS: BP 157/66
[2020-02-18] MEDS ORDERED: COMBIVIR 1501 COMBO PO (09:52)
[2020-02-18] MEDS ORDERED: CRIXIVAN400 MG PO (09:52)
[2020-02-18] MEDS ORDERED: ONDANSETRON4 MG PO (10:15)
[2020-02-18 11:32] LABS: URINE BILIRUBIN - DIPSTICK NEGATIVE (NEGATIVE); URINE BLOOD DIPSTICK NEGATIVE (NEGATIVE); URINE COLOR YELLOW; URINE GLUCOSE - DIPSTICK 500 mg/dL (NEGATIVE); URINE KETONE NEGATIVE (NEGATIVE); URINE LEUK ESTERASE NEGATIVE (NEGATIVE); URINE NITRITE - DIPSTICK NEGATIVE (Negative); URINE PH 5.5 (4.5-8.0); URINE PROTEIN - DIPSTICK NEGATIVE (NEG-TRACE); URINE SPECIFIC GRAVITY >=1.030; URINE UROBILINOGEN - DIPSTICK 0.2 E.U./dL (0.2)
== END 2020-02-18 10:44 | disposition home or self-care (01) | DRG 605 ==
LOC: ED 07:53
PROVIDERS: Family Medicine
DX: S60.411A Abrasion of left index finger, initial encounter (principal); E11.9 Type 2 diabetes mellitus without complications; I10 Essential (primary) hypertension; W46.1XXA Contact with contaminated hypodermic needle, initial encounter; Y99.0 Civilian activity done for income or pay; Z79.4 Long term (current) use of insulin

== ENCOUNTER 2020-02-21 08:08 | Emergency (ER) | payer MEDICARE ==
[~2020-02-21] VITALS: Ht 157.5 cm; Wt 92.7 kg
[~2020-02-21 08:08] MED LIST changes: +COMBIVIR 1501 COMBO PO; +CRIXIVAN400 MG PO
[2020-02-21] MEDS ORDERED: DOXYCYCL HYC100 MG PO (08:22)
[2020-02-21 08:36] VITALS: BP 126/79
== END 2020-02-21 08:37 | disposition home or self-care (01) ==
LOC: ED 08:08
DX: S80.811A Abrasion, right lower leg, initial encounter (principal); E11.9 Type 2 diabetes mellitus without complications; I10 Essential (primary) hypertension; W18.30XA Fall on same level, unspecified, initial encounter; Y92.009 Unspecified place in unspecified non-institutional (private) residence as the place of occurrence of the external cause; Z79.84 Long term (current) use of oral hypoglycemic drugs

== ENCOUNTER 2020-05-06 20:08 | Emergency (ER) | payer MEDICARE ==
[~2020-05-06] VITALS: Ht 157.5 cm; Wt 91.8 kg
[2020-05-06 21:01] LABS: HEMATOCRIT 41.2 % (37.0-47.0); HEMOGLOBIN 13.6 g/dl (12.0-16.0); IMMATURE GRANULOCYTES 0.2 % (0.0-5.0); MEAN CELL VOLUME 86.6 fL CALC (80.0-100.0); MEAN CORPUSCULAR HGB 28.6 pG CALC (26.0-32.0); NEUT# 2.76 thou/uL (2.00-7.15); RED BLOOD COUNT 4.76 mill/uL (4.20-5.60); RED CELL DISTRI WIDTH 13.2 % (11.5-15.5)
[2020-05-06 21:19] LABS: AMYLASE 51 u/l (30-110); LIPASE 41 u/l (23-300)
[2020-05-06 21:20] LABS: ALBUMIN 3.7 g/dL (3.2-5.0); ALKALINE PHOSPHATASE 96 u/l (38-126); ANION GAP 11 (6-22 (CALC)); BILIRUBIN, TOTAL 1.1 mg/dL (0.0-1.4); BUN 10 mg/dL (8-23); BUN/CREATININE RATIO 27 (12-20 (CALC)); CARBON DIOXIDE 23 mmol/l (22-30); CHLORIDE 100 mmol/l (95-108); CREATININE 0.4 mg/dL (0.5-1.0); GFR > 60 ML/MIN (>=60 (CALC)); GFR FOR AFR.AMER. > 60 ML/MIN (>=60 (CALC)); POTASSIUM 3.8 mmol/l (3.5-5.1); SGOT/AST 43 u/l (9-36); TOTAL PROTEIN 7.1 g/dL (6.3-8.2)
[2020-05-06 21:23] LABS: SODIUM 130 mmol/l (137-146)
[2020-05-06 21:24] LABS: INTERNATIONAL NORMALIZED RATIO 1.2 RATIO (0.7-1.3); PROTHROMBIN TIME 11.5 SECONDS (9.0-12.5)
[2020-05-06 21:29] LABS: D-DIMER 5.31 mg/L (0.19-0.60)
[2020-05-06] MEDS ORDERED: TORADOL PO (23:13)
[2020-05-06 23:23] VITALS: BP 120/71
== END 2020-05-06 23:31 | disposition home or self-care (01) ==
LOC: ED 20:08
PROVIDERS: Family Medicine
DX: U07.1 COVID-19 (principal); R09.1 Pleurisy; E11.9 Type 2 diabetes mellitus without complications; I10 Essential (primary) hypertension; Z95.1 Presence of aortocoronary bypass graft; Z79.4 Long term (current) use of insulin
CPT/HCPCS: Q9967

== ENCOUNTER 2020-05-19 12:13 | Observation (INO) | payer MEDICARE ==
[~2020-05-19] VITALS: Ht 157.5 cm; Wt 92.8 kg
[~2020-05-19 12:13] MED LIST changes: +TORADOL PO
[2020-05-19 12:46] VITALS: BP 136/65
--- NOTE | 2020-05-19 13:00 | NUR ---
PT ARRIVES TO ROOM 282 A DIRECT ADMIT FROM DR JEFFREY'S OFFICE. PT IS ALERT AND ORIENTED X 3, AMBULATORY. IV ESTABLISHED WITH BLOOD DRAW. NO EKG OR ABG DONE PER UNAVAILABLE RT.
[2020-05-19 13:31] LABS: HEMATOCRIT 38.3 % (37.0-47.0); HEMOGLOBIN 12.5 g/dl (12.0-16.0); IMMATURE GRANULOCYTES 0.5 % (0.0-5.0); MEAN CELL VOLUME 86.7 fL CALC (80.0-100.0); MEAN CORPUSCULAR HGB 28.3 pG CALC (26.0-32.0); MEAN CORPUSCULAR HGB CONC 32.6 g/dL CAL (32.0-36.0); NEUT# 5.53 thou/uL (2.00-7.15); RED BLOOD COUNT 4.42 mill/uL (4.20-5.60); RED CELL DISTRI WIDTH 13.1 % (11.5-15.5)
[2020-05-19 13:56] LABS: ALBUMIN 3.3 g/dL (3.2-5.0); ALKALINE PHOSPHATASE 122 u/l (38-126); ANION GAP 8 (6-22 (CALC)); BILIRUBIN, TOTAL 0.8 mg/dL (0.0-1.4); BUN 17 mg/dL (8-23); BUN/CREATININE RATIO 46 (12-20 (CALC)); CHLORIDE 95 mmol/l (95-108); CREATININE 0.4 mg/dL (0.5-1.0); GFR > 60 ML/MIN (>=60 (CALC)); GFR FOR AFR.AMER. > 60 ML/MIN (>=60 (CALC)); SGOT/AST 41 u/l (9-36); SODIUM 130 mmol/l (137-146)
[2020-05-19 13:57] LABS: CARBON DIOXIDE 31 mmol/l (22-30)
[2020-05-19] MEDS ORDERED: PLAVIX75 MG PO (14:38)
[2020-05-19] MEDS ORDERED: OXYCODONE10 M1 PO (14:41)
[2020-05-19] MEDS ORDERED: CARAFATE1 GM PO (14:47)
[2020-05-19 15:30] VITALS: BP 165/89
[2020-05-19 19:00] VITALS: BP 189/79
--- NOTE | 2020-05-19 20:00 | NUR ---
PATIENT RESTING IN BED AT THIS TIME-AWAKE ALERT AND ORIENTEDX3. PATIENT WITH C/O SEVERE BACK PAIN-MEDICATED WITH MOTRIN 600MG PO ORDERED. EKG AND ABG WAS DONE ORDERED. NASAL SWAB OBTAINED AND SENT TO LAB. PATIENT STATES THATSHE HAD COVID DX THE BEGINING OF APRIL BUT CONT TO HAVE SX-SOB, CHEST PAIN, ABD PAIN, CHRONIC BACK PAIN. O2 SAT IS 94% ON ROOM AIR. TELE MONITOR IN PLACE. IV SITE TO LAC INTACT AND HEALTHY AT THIS TIME. LUNGS ARE DIMINISHED THROUGHOUT. PATIENT ON ISOLATION IN NEG PRESSURE ROOM FOR COVID. SAFETY PRECAUTIONS REINFORCED. CALL LIGHT IN REACH. WILL CONT TO MONITOR.
[2020-05-19 23:45] VITALS: BP 119/64
--- NOTE | 2020-05-20 02:28 | NUR ---
PATIENT RESTING IN BED-ASSISTED TO WHEELCHAIR AND TAKEN TO RADIOLOGY FOR CTA ORDERED. RETURNED TO THE ROOM AND UP TO THE BR TO VOID. BACK TO BED-MEDICATED FOR BACK PAIN WITH ROXICODONE 10MG PO. TELE MONITOR IN PLACE. SALINE LOCK TO LAC INTACT. SAFETY PRECAUTIONS REINFORCED. CALL LIGHT IN REACH. WILL CONT TO MONITOR.
[2020-05-20 03:30] VITALS: BP 89/48
--- NOTE | 2020-05-20 03:58 | NUR ---
PATIENT APPEARS SLEEPING AT THIS TIME. EYES ARE CLOSED AND RESPS ARE EVEN AND UNLABORED. TELE MONITOR IN PLACE. IV SITE TO LAC INTACT. CALL LIGHT IN REACH. WILL CONT TO MONITOR.
[2020-05-20 06:58] LABS: ANION GAP 8 (6-22 (CALC)); BUN 15 mg/dL (8-23); BUN/CREATININE RATIO 36 (12-20 (CALC)); CARBON DIOXIDE 27 mmol/l (22-30); CHLORIDE 97 mmol/l (95-108); CREATININE 0.4 mg/dL (0.5-1.0); GFR > 60 ML/MIN (>=60 (CALC)); GFR FOR AFR.AMER. > 60 ML/MIN (>=60 (CALC)); MAGNESIUM 1.7 mg/dL (1.6-2.3); POTASSIUM 4.1 mmol/l (3.5-5.1); SODIUM 127 mmol/l (137-146)
[2020-05-20 07:36] LABS: HEMOGLOBIN 14.1 g/dl (12.0-16.0); MEAN CORPUSCULAR HGB 28.7 pG CALC (26.0-32.0); MEAN CORPUSCULAR HGB CONC 31.8 g/dL CAL (32.0-36.0); RED BLOOD COUNT 4.92 mill/uL (4.20-5.60); RED CELL DISTRI WIDTH 13.3 % (11.5-15.5)
[2020-05-20 07:49] LABS: HEMATOCRIT 44.3 % (37.0-47.0)
[2020-05-20 08:15] VITALS: BP 137/59
--- NOTE | 2020-05-20 08:15 | NUR ---
ASSESSMENT IS COMPLETED: IV SITE IS FREE FROM REDNESS OR EDEMA. HR IS REG,PULSES ARE STRONG X4, ABD IS SOFT WITH ACTIVE BS. BREATH SOUNDS ARE CLEAR.BILATERALLY.
[2020-05-20 11:30] VITALS: BP 179/52
--- NOTE | 2020-05-20 12:15 | NUR ---
PT IS RELAXING IN BED WITH NO DISTRESS NTOED. IV SITE IS FREE FROM REDNESS OR EDEMA.
[2020-05-20] MEDS ORDERED: PREDNISONE10 MG PO (12:57)
[2020-05-20] MEDS ORDERED: MOTRIN800 MG PO (12:59)
[2020-05-20] MEDS ORDERED: OXYCODONE10 M1 PO (12:59)
--- NOTE | 2020-05-20 15:30 | NUR ---
IV SITE DISCONTINUED CATHETER INTACT. NO REDNESS OR EDEMA. DISCHARGE INSTRUCTIONS GIVEN AND VERBALIZED UNDERSTANDING, Discharge instructions given. Patient verbalizes understanding of same. Discharged in stable condition via Wheelchair to Home with family. All belongings sent with pt.
== END 2020-05-20 15:25 | disposition home or self-care (01) ==
LOC: MS2 12:13
PROVIDERS: Nurse Practitioner; ADMIT Internal Medicine; ATTEND Internal Medicine
DX: R09.1 Pleurisy (principal); U07.1 COVID-19; I10 Essential (primary) hypertension; E11.9 Type 2 diabetes mellitus without complications; K76.6 Portal hypertension; I25.10 Atherosclerotic heart disease of native coronary artery without angina pectoris; E78.5 Hyperlipidemia, unspecified; K74.60 Unspecified cirrhosis of liver; N28.1 Cyst of kidney, acquired; Z95.1 Presence of aortocoronary bypass graft; Z87.891 Personal history of nicotine dependence; Z95.5 Presence of coronary angioplasty implant and graft
CPT/HCPCS: Q9967

== ENCOUNTER 2020-05-30 19:30 | Observation (INO) | payer MEDICARE ==
[~2020-05-30] VITALS: Ht 157.5 cm; Wt 91.0 kg
[~2020-05-30 19:30] MED LIST changes: +CARAFATE1 GM PO; +MOTRIN800 MG PO; +OXYCODONE10 M1 PO; +PREDNISONE10 MG PO
--- NOTE | 2020-05-30 19:48 | NUR ---
PATIENT TO ROOM 6 VIA WHEELCHAIR FOR BEDSIDE TRIAGE.
--- NOTE | 2020-05-30 20:50 | NUR ---
PT MEDICATED PER MD ORDER. TOLERATED ADMINISTRATION WELL. STOOL HEMMOCULT PERFORMED BY DR PONCE AND SHOWN NEGATIVE. PT PLACED ON POMOLOGIST. CALL LIGHT PROVIDED TO PT. ADVISED OF CONT WAIT TIME FOR RESULTS. VERALIZED UNDERSTANDING. DENIES ANY NEEDS. CALL LIGHT WITHIN REACH.
[2020-05-30 20:53] LABS: HEMATOCRIT 42.4 % (37.0-47.0); HEMOGLOBIN 13.9 g/dl (12.0-16.0); IMMATURE GRANULOCYTES 0.3 % (0.0-5.0); MEAN CELL VOLUME 85.5 fL CALC (80.0-100.0); MEAN CORPUSCULAR HGB CONC 32.8 g/dL CAL (32.0-36.0); NEUT# 6.83 thou/uL (2.00-7.15); RED BLOOD COUNT 4.96 mill/uL (4.20-5.60); RED CELL DISTRI WIDTH 13.8 % (11.5-15.5)
[2020-05-30 20:54] LABS: URINE BILIRUBIN - DIPSTICK NEGATIVE (NEGATIVE); URINE BLOOD DIPSTICK MODERATE (NEGATIVE); URINE COLOR YELLOW; URINE GLUCOSE - DIPSTICK >=1000 mg/dL (NEGATIVE); URINE KETONE NEGATIVE (NEGATIVE); URINE LEUK ESTERASE NEGATIVE (NEGATIVE); URINE NITRITE - DIPSTICK NEGATIVE (Negative); URINE PH 8.5 (4.5-8.0); URINE PROTEIN - DIPSTICK NEGATIVE (NEG-TRACE); URINE SPECIFIC GRAVITY 1.015
[2020-05-30 20:59] LABS: URINE SQUAMOUS EPITHELIAL CELL FEW EPI/hpf (0-FEW)
[2020-05-30 21:14] LABS: ACT PARTIAL THROMBO TIME 27.2 SECONDS (20.0-32.5); INTERNATIONAL NORMALIZED RATIO 1.4 RATIO (0.7-1.3); PROTHROMBIN TIME 13.8 SECONDS (9.0-12.5)
[2020-05-30 21:18] LABS: ALBUMIN 3.4 g/dL (3.2-5.0); ALKALINE PHOSPHATASE 151 u/l (38-126); AMYLASE 60 u/l (30-110); ANION GAP 9 (6-22 (CALC)); BUN 11 mg/dL (8-23); BUN/CREATININE RATIO 27 (12-20 (CALC)); CARBON DIOXIDE 28 mmol/l (22-30); CHLORIDE 93 mmol/l (95-108); CREATININE 0.4 mg/dL (0.5-1.0); ETHYL ALCOHOL 0 mg/dl (0-30); GFR > 60 ML/MIN (>=60 (CALC)); GFR FOR AFR.AMER. > 60 ML/MIN (>=60 (CALC)); LIPASE 113 u/l (23-300); POTASSIUM 3.8 mmol/l (3.5-5.1); SGOT/AST 61 u/l (9-36); SODIUM 126 mmol/l (137-146); TOTAL PROTEIN 7.3 g/dL (6.3-8.2)
[2020-05-30 21:20] LABS: BILIRUBIN, TOTAL 2.3 mg/dL (0.0-1.4)
--- NOTE | 2020-05-30 21:30 | NUR ---
PT RESTING ON STRETCHER IN NAD. RESP EVEN UNLABORED. SKIN WARM AND DRY. ADULT EDUCATION PROFESSIONAL IN PLACE. DENIES ANY NEEDS. CALL LIGHT WITHIN REACH.
--- NOTE | 2020-05-30 23:45 | NUR ---
PT MEDCIATED FOR PAIN PER ORDER AND CONT COMPLAINT OF EPIGASTRIC PAIN. TOLERATED ADMINISTRATION WELL. ADVISED OF PENDING ADMIT. VERBALIZED UNDERSTANDING. DENIES ANY NEEDS.
--- NOTE | 2020-05-31 00:10 | NUR ---
Admission Note Report Given to: ANTHONY MONAHAN Transported by: X Wheelchair Stretcher Transported with: X Nurse Transporter X Patent IV O2 X Pantomimist Location: ICU X MS2 PT REPORT PROVIDED TO TANIYA. TRANSPORTED TO DC VIA IN STABLE CONDITION WITH TELE IN PLACE.
[2020-05-31 00:40] VITALS: BP 150/83
--- NOTE | 2020-05-31 01:59 | NUR ---
PATIENT ADMITTED FROM ER VIA WHEELCHAIR WITH ER STAFF IN ATTENDANCE. PATIENT ABLE TO TRANSFER FROM WHEELCHAIR AND AMBULATE TO THE BR TO VOID. PATIENT IS NOW RESTING IN BED. PATIENT ALERT AND ORIENTEDX3. ADMITTED FOR ABD PAIN, HYUPONATREMIA, CIRRHOSIS, ASCITES. PATIENT IS STILL C/O ABD PAIN 7/10 ON PAIN SCALE EVEN AFTER HAVING MEDS IN ER. PATIENT WITH IV SITE TO RAC-HEALTHY AT THIS TIME WITH GOOD BLOOD RETURN. IVF NS HUNG AND INFUSING AT 125CC/HR. MEDICATED WITH PEPCID 20MG IVP FOR ABD PAIN/INDIGESTION. ACCU-CHECK WAS DONE-233 AT THIS TIME. ABD IS LARGE AND DISTENDED BUT SOFT-STATES THAT SHE LAST HAD A BM YESTERDAY AND THAT IT WAS SOFT AND "BLACK[place] GREEN". DENIES TAKING ANY KIND OF IRON SUPPLIMENTS. DENIES ANY PROBLEMS WITH URINATION EXCEPT OCC STRESS INCONT. LUNGS ARE CLEAR. NO PERIPHERAL EDEMA NOTED. PULSES ARE PALPABLE. PATIENT PROVIDED WITH PO FLUIDS. ORIENTED TO ROOM AND SURROUNDINGS. INSTRUCTED ON U SE OF NURSE CALL LIGHT SYSTEM, TV REMOTE AND PHONE. SAFETY PRECAUTIONS REINFORCED. CALL LIGHT IN REACH. WILL CONT TO MONITOR.
[2020-05-31 03:48] LABS: IMMATURE GRANULOCYTES 0.4 % (0.0-5.0); MEAN CELL VOLUME 86.1 fL CALC (80.0-100.0); MEAN CORPUSCULAR HGB 27.8 pG CALC (26.0-32.0); MEAN CORPUSCULAR HGB CONC 32.3 g/dL CAL (32.0-36.0); NEUT# 5.19 thou/uL (2.00-7.15); RED BLOOD COUNT 4.17 mill/uL (4.20-5.60); RED CELL DISTRI WIDTH 13.8 % (11.5-15.5)
[2020-05-31 03:54] LABS: HEMATOCRIT 35.9 % (37.0-47.0); HEMOGLOBIN 11.6 g/dl (12.0-16.0)
[2020-05-31 04:19] VITALS: BP 96/50
[2020-05-31 04:25] LABS: ALKALINE PHOSPHATASE 104 u/l (38-126); ANION GAP 8 (6-22 (CALC)); BILIRUBIN, TOTAL 1.9 mg/dL (0.0-1.4); BUN 9 mg/dL (8-23); BUN/CREATININE RATIO 32 (12-20 (CALC)); CARBON DIOXIDE 25 mmol/l (22-30); CHLORIDE 99 mmol/l (95-108); CREATININE 0.3 mg/dL (0.5-1.0); GFR > 60 ML/MIN (>=60 (CALC)); GFR FOR AFR.AMER. > 60 ML/MIN (>=60 (CALC)); POTASSIUM 3.7 mmol/l (3.5-5.1); SGOT/AST 46 u/l (9-36); SODIUM 128 mmol/l (137-146)
[2020-05-31 04:27] LABS: ALBUMIN 2.3 g/dL (3.2-5.0); TOTAL PROTEIN 5.5 g/dL (6.3-8.2)
--- NOTE | 2020-05-31 04:30 | NUR ---
PATIENT RESTING IN BED-REQUESTING SOMETHING FOR NAUSEA-MEDICATED WITH ZOFRAN 4MG IVP VIA RIGHT AC IV SITE. IVF NS PATENT ANDINFUSING AT 1`25CC/HR VIA RIGHT AC SITE. TELE MONITOR IN PLACE. PATIENT CONT TO C/O ABD PAIN BUT DECLINES PAIN MED AT THIS TIME. PROVIDED WITH APPLE JUICE PER PATIENT REQUEST. SAFETY PRECAUTIONS REINFORCED. CALL LIGHT IN REACH. WILL CONT TO MONITOR.
--- NOTE | 2020-05-31 06:22 | NUR ---
PATIENT RESTING IN BED-IVF PATENT AND INFUSING VIA RIGHT AC SITE AT 125CC/HR. SITE REMAINS HEALTHY. PATIENT MEDICATED FOR ABD PAIN-7/10 ON PAIN SCALE WITH MORPHINE 2MG IVP ORDERED FOR PAIN. TELE MONITOR IN PLACE. SAFETY PRECAUTIONS REINFORCED. CALL LIGHT IN REACH. WILL CONT TO MONITOR.
[2020-05-31 07:45] VITALS: BP 111/63
--- NOTE | 2020-05-31 07:45 | NUR ---
ASSESSMENT IS COMPLETED: IV SITE IS FREE FROM REDNESS OR EDEMA, HR IS REG,PULSES ARE STRONG X4, ABD IS DISTENDED WITH ACTIVE BS,BREATH SOUNDS ARE CLEAR BILATERALLY.TELE MONITOR IN PLACE.
--- NOTE | 2020-05-31 10:30 | NUR ---
PT WENT FOR AN US OF THE LIVER POSSIBLE TAP. VIA WC WITH STAFF.
--- NOTE | 2020-05-31 10:57 | NUR ---
PT RETURNED FROM US
--- NOTE | 2020-05-31 12:30 | NUR ---
PT IS RELAXING IN BED WITH NO DISTRESS NOTED. IV SITE IS FREE FROM REDNESS OR EDEMA.
[2020-05-31 15:00] VITALS: BP 119/67
--- NOTE | 2020-05-31 16:10 | NUR ---
PT HAS BEEN SITTING ON THE SIDE OF THE BED WITH NO DISTRESS NOTED. IV SITE IS FREE FROM REDNESS OR EDEMA.
[2020-05-31 19:00] VITALS: BP 152/90
--- NOTE | 2020-05-31 19:48 | NUR ---
PATIENT RESTING IN BED AT THIS TIME-AWAKE ALERT AND ORIENTEDX3. PATIENT STATES THAT SHE IS FEELING ONLY SLIGHTLY BETTER TONIGHT COMPARED TO WHEN SHE WAS ADMITTED. STILL HAVE ABD DISCOMFORT YOLANDA WHEN SHE TRIES TO EAT. APPETITE IS POOR. NO NAUSEA THIS TIME-JUST CAN'T EAT. ABD REMAINS LARGE AND DISTENDED. NO BM TODAY. TELE MONITOR IN PLACE. IV SITE TO RIGHT AC INTACT WITH IVF AT 20CC/HR. DECLINES ANY PAIN MEDS AT THIS ITME. SAFETY PRECAUTIONS REINFORCED. CALL LIGHT IN REACH. WILL CONT TO MONITOR.
--- NOTE | 2020-05-31 21:00 | NUR ---
PATIENT RESTING IN QCN-XINE-RHAUA WAS 211-COVERED WITH 3 UNITS OF HUMALOG SQ PER SLIDING SCALE COVERAGE PROTOCOL. PROVIDED WITH JELL-O FOR SNACK. MEDICATED FOR ABD PAIN WITH OXYCODONE 10MG PO FOR 5/10 PAIN SCALE. MEDICATED WITH ATIVAN 0.5MG PO FOR ANXIETY AND SLEEP. IVF PATENT AND INFUSING VIA RAC SITE AT KVO RATE. TELE MONITOR IN PLACE. SAFETY PRECAUTIONS REINFORCED. CALL LIGHT IN REACH. WILL CONT TO MONITOR.
[2020-05-31 23:44] VITALS: BP 127/68
--- NOTE | 2020-06-01 00:23 | NUR ---
PATIENT RESTING IN BED POSITIONED ON LEFT SIDE. EYES ARE CLOSED. RESPS ARE EVEN AND UNLABORED. IVF PATENT AND INFUSING VIA RAC SITE AT KVO RATE. TELE MONITOR IN PLACE. CALL LIGHT IN REACH. WILL CONT TO MONITOR.
[2020-06-01 04:00] VITALS: BP 115/56
--- NOTE | 2020-06-01 04:30 | NUR ---
PATIENT RESTING IN BED AT THIS TIME-APPEARS SLEEPING WITH EYES CLOSED. IVF PATENT AND INFUSING VIA RAC AT KVO RATE. RESPS ARE EVEN AND UNLABORED. TELE MONITOR IN PLACE. CALL LIGHT IN REACH. WILL CONT TO MONITOR,
[2020-06-01 05:45] LABS: HEMATOCRIT 38.4 % (37.0-47.0); HEMOGLOBIN 12.3 g/dl (12.0-16.0); MEAN CELL VOLUME 86.1 fL CALC (80.0-100.0); MEAN CORPUSCULAR HGB 27.6 pG CALC (26.0-32.0); RED BLOOD COUNT 4.46 mill/uL (4.20-5.60); RED CELL DISTRI WIDTH 13.9 % (11.5-15.5)
[2020-06-01 06:10] LABS: ALBUMIN 2.5 g/dL (3.2-5.0); ALKALINE PHOSPHATASE 108 u/l (38-126); ANION GAP 8 (6-22 (CALC)); BILIRUBIN, TOTAL 1.9 mg/dL (0.0-1.4); BUN 11 mg/dL (8-23); BUN/CREATININE RATIO 30 (12-20 (CALC)); CARBON DIOXIDE 27 mmol/l (22-30); CHLORIDE 97 mmol/l (95-108); CREATININE 0.4 mg/dL (0.5-1.0); GFR > 60 ML/MIN (>=60 (CALC)); GFR FOR AFR.AMER. > 60 ML/MIN (>=60 (CALC)); MAGNESIUM 1.6 mg/dL (1.6-2.3); POTASSIUM 3.5 mmol/l (3.5-5.1); SGOT/AST 53 u/l (9-36); SODIUM 128 mmol/l (137-146); TOTAL PROTEIN 5.8 g/dL (6.3-8.2)
[2020-06-01 07:52] VITALS: BP 116/55
--- NOTE | 2020-06-01 07:52 | NUR ---
RECIEVED REPORT FROM ANTHONY MONAHAN. PT IS A/O X3. ASSESSMENT AND VITALS COMPLETED. BP 116/55, HR 79, O2 95% ON ROOM AIR. RESPRIATIONS ARE EVEN AND UNLABROED WITH NO DISTRESS. HEART RHYTHM IS NORMAL WITH TELE MONITORING IN PLACE, SR WITH IVCD AND PVC PER ER MONITORING. BOWEL SOUNDS ARE ACTIVE.TENDERNESS NOTED TO ABD, FIRM AND DISTENDED. RADIAL AND PEDAL PUSLES ARE STRONG. #222G IN RAC WITH IVF INFUSING PER ORDER, SITE APPEARS HEALTHY AND PATENT. PT DENIES OF ANY NEEDS AT THIS TIME. ALL SAFETY PRECAUTIONS ARE IN PLACE WITH CALL LIGHT IN REACH. WILL CONTINUE TO MONITOR.
--- NOTE | 2020-06-01 08:50 | NUR ---
DR CONNER AT BEDSIDE
[2020-06-01 11:00] VITALS: BP 136/75
--- NOTE | 2020-06-01 12:58 | NUR ---
PT RESTING IN SEMI FOWLERS POSITION. RESPIRATIONS ARE EVEN AND UNLABORED ON ROOM AIR. TELE MONITORING IN PLACE. IVF INFUSING PER ORDER, SITE APPEARS HEALTHY AND PATENT. PT DENIES OF ANY PAINS OR DISCOMFORTS.PT REQUEST T TALK TO ANRP. CHARBEL NOTFIED. ALL SAFETY PRECAUTIONS ARE IN PLACE. WILL CONTINUE TO MONITOR.
[2020-06-01] MEDS ORDERED: LASIX 40 MG TAB40 MG PO (12:59)
[2020-06-01] MEDS ORDERED: ALDACTONE25 MG PO (12:59)
--- NOTE | 2020-06-01 14:18 | NUR ---
HEBER,ANRP AT BEDSIDE
--- NOTE | 2020-06-01 14:21 | NUR ---
PT EDUCATED ON DISCHARGE INSTRUCTIONS AND NEW MEDICATIONS, PT VERBLAIZED UNDERSTANDING. #22G IN RAC REMOEVED WITH CATAHTERS TILL INTACT. PT TOLERATED WELL. TELE MONITORING REMOVED. ER NOTFIED. WAITING FOR TRANSPORTATION. WILL CONTINUE TO MONITOR
--- NOTE | 2020-06-01 14:39 | NUR ---
Discharge instructions given. Patient verbalizes understanding of same. Discharged in stable condition via Wheelchair to Home with staff. All belongings sent with pt. PT DISCHARGED HOME VIA WHEELCHAIR IN STABLE CONDITION ACCOMPAINED BY STAFF. PT DISCHARGED WITH ALL BELONGINGS AND DISCHARGE INSTRUCTIONS
== END 2020-06-01 14:39 | disposition home or self-care (01) ==
LOC: ED 19:30 → ED-I 23:21 → ED 23:44 → MS2 23:45
PROVIDERS: Nurse Practitioner; ADMIT Internal Medicine; ATTEND Internal Medicine
DX: K74.60 Unspecified cirrhosis of liver (principal); R18.8 Other ascites; E87.1 Hypo-osmolality and hyponatremia; E11.65 Type 2 diabetes mellitus with hyperglycemia; I10 Essential (primary) hypertension; I25.10 Atherosclerotic heart disease of native coronary artery without angina pectoris; E78.5 Hyperlipidemia, unspecified; E87.2 Acidosis; K21.9 Gastro-esophageal reflux disease without esophagitis; Z95.1 Presence of aortocoronary bypass graft; Z90.49 Acquired absence of other specified parts of digestive tract; Z87.891 Personal history of nicotine dependence; Z79.84 Long term (current) use of oral hypoglycemic drugs; Z95.5 Presence of coronary angioplasty implant and graft; Z86.16 Personal history of COVID-19; Z20.822 Contact with and (suspected) exposure to COVID-19
CPT/HCPCS: Q9967; S0164

== ENCOUNTER 2020-08-23 06:16 | Observation (INO) | payer MEDICARE ==
[~2020-08-23] VITALS: Ht 157.5 cm; Wt 90.0 kg
[~2020-08-23 06:16] MED LIST changes: +ALDACTONE25 MG PO
--- NOTE | 2020-08-23 06:24 | NUR ---
FROM WR TO ROOM 10. TRIAGED AT BEDSIDE.
--- NOTE | 2020-08-23 07:00 | NUR ---
Reassessment of patient completed. No distress noted.
[2020-08-23 07:27] LABS: HEMOGLOBIN 12.6 g/dl (12.0-16.0); IMMATURE GRANULOCYTES 0.5 % (0.0-5.0); MEAN CORPUSCULAR HGB 28.5 pG CALC (26.0-32.0); MEAN CORPUSCULAR HGB CONC 33.2 g/dL CAL (32.0-36.0); NEUT# 1.49 thou/uL (2.00-7.15); RED BLOOD COUNT 4.42 mill/uL (4.20-5.60); RED CELL DISTRI WIDTH 14.6 % (11.5-15.5)
--- NOTE | 2020-08-23 08:15 | NUR ---
FIRST CONTACT WITH PT. PT REPORTS FEELING NAUSEATED. NOTIFIED. NEW ORDER RECEIVED. LABS DRAWN AND GIVEN TO [employer].
[2020-08-23 08:47] LABS: ALBUMIN 3.3 g/dL (3.2-5.0); ALKALINE PHOSPHATASE 108 u/l (38-126); AMYLASE 60 u/l (30-110); ANION GAP 7 (6-22 (CALC)); BILIRUBIN, TOTAL 1.3 mg/dL (0.0-1.4); BUN 13 mg/dL (8-23); BUN/CREATININE RATIO 39 (12-20 (CALC)); CARBON DIOXIDE 28 mmol/l (22-30); CHLORIDE 101 mmol/l (95-108); CREATININE 0.3 mg/dL (0.5-1.0); GFR > 60 ML/MIN (>=60 (CALC)); GFR FOR AFR.AMER. > 60 ML/MIN (>=60 (CALC)); LIPASE 87 u/l (23-300); POTASSIUM 4.1 mmol/l (3.5-5.1); SGOT/AST 54 u/l (9-36); SODIUM 132 mmol/l (137-146); TOTAL PROTEIN 6.5 g/dL (6.3-8.2)
[2020-08-23 08:50] LABS: ACT PARTIAL THROMBO TIME 22.7 SECONDS (20.0-32.5); INTERNATIONAL NORMALIZED RATIO 1.1 RATIO (0.7-1.3); PROTHROMBIN TIME 11.6 SECONDS (9.0-12.5)
--- NOTE | 2020-08-23 09:15 | NUR ---
RESTING ON STRETCHER. CALL CLEMENT WITHIN REACH.
--- NOTE | 2020-08-23 09:42 | NUR ---
AMBULATED TO BATHROOM. REQUESTING ATIVAN FOR RLS. NOTIFIED.
[2020-08-23] MEDS ORDERED: FUROSEMIDE20 MG PO (10:26)
[2020-08-23] MEDS ORDERED: K-TABS10 MEQ PO (10:26)
[2020-08-23] MEDS ORDERED: OXYCODONE5 M1 PO (10:26)
[2020-08-23] MEDS ORDERED: SPIRONOLACT25 MG PO (10:27)
--- NOTE | 2020-08-23 10:34 | NUR ---
PT RESTING QUIETLY ON STRETCHER. CALL CLEMENT WITHIN REACH. REPORT CALLED TO ANTHONY BERRY. BELONGINGS SENT WITH PT IN BELONGING BAG. TO FLOOR ON TELE IN STABLE CONDITION WITH ANTHONY.
--- NOTE | 2020-08-23 10:44 | NUR ---
PT ARRIVED VIA STRETCHER WITH STAFF. IV SITE AND TELE MONITOR IN PLACE.
--- NOTE | 2020-08-23 10:55 | NUR ---
ATTEMPTED TO COMPLETE THE ADMISSION INQUIRY PT WAS SLEEPING NO DISTRESS NOTED.
[2020-08-23 11:07] VITALS: BP 101/68
--- NOTE | 2020-08-23 12:00 | NUR ---
ASSESSMENT COMPLETED: PT WAS SLEEPING UPON ARRIVAL. IV SITE IS FREE FROM REDNESS OR EDEMA. HR IS REG,PULSES ARE STRONG X4, ABD IS SOFT WITH ACTIVE BS. BREATH SOUNDS ARE CLEAR,BILATERALLY, TELE MONITOR IN PLACE. CONTINUE TO [place] AND MONITOR.
--- NOTE | 2020-08-23 12:09 | NUR ---
SENT UA TO BE TESTED.
[2020-08-23 12:17] LABS: URINE BILIRUBIN - DIPSTICK NEGATIVE (NEGATIVE); URINE BLOOD DIPSTICK NEGATIVE (NEGATIVE); URINE CLARITY SL CLOUDY; URINE COLOR YELLOW; URINE GLUCOSE - DIPSTICK >=1000 mg/dL (NEGATIVE); URINE KETONE NEGATIVE (NEGATIVE); URINE LEUK ESTERASE NEGATIVE (Negative); URINE NITRITE - DIPSTICK NEGATIVE (Negative); URINE PROTEIN - DIPSTICK NEGATIVE (NEG-TRACE); URINE UROBILINOGEN - DIPSTICK 0.2 E.U./dL (0.2)
[2020-08-23 15:10] VITALS: BP 116/57
--- NOTE | 2020-08-23 16:23 | NUR ---
C/O SOB ON EXERTION. PLACED ON 1.5L OF O2 VIA NC.
--- NOTE | 2020-08-23 16:28 | NUR ---
BS IS 387
[2020-08-23] MEDS ORDERED: LORAZEPAM0.5 MG PO (16:34)
[2020-08-23] MEDS ORDERED: LISINOPRIL5 MG PO (16:36)
[2020-08-23] MEDS ORDERED: MOTRIN400 MG/TAB PO (16:38)
[2020-08-23] MEDS ORDERED: ZOFRAN4 MG/TAB PO (16:39)
[2020-08-23] MEDS ORDERED: HUMALOG KW50 MG/50 K SC (16:43)
[2020-08-23] MEDS ORDERED: MAGNESIUM OXID400 M1 PO (16:44)
--- NOTE | 2020-08-23 17:11 | NUR ---
FAMILY BROUGHT MEDICATION IN WILL CALL RE: HER PLAVIX
--- NOTE | 2020-08-23 18:07 | NUR ---
INFORMED PT OF NEEDING HER NADOLOL . WILL HAVE SPOUSE BRING IT BACK BY,
--- NOTE | 2020-08-23 19:31 | NUR ---
PATIENT RESTING IN BED AT THIS TIME-AWAKE ALERT AND ORIENTEDX3. PATIENT FINISHED EATING DINNER-APPETITE WAS GOOD. ATE 100% ON TRAY. PATIENT WITH NO COMPLAINTS AT THIS TIME. O2 VIA NASAL CANNULA IN PLACE. TELE MONITOR IN PLACE. SALINE LOCK TO RAC INTACT. LEFT SIDE OF FACE/MOUTH/ LIPS WITH SWELLING. SAFETY PRECAUTIONS REINFORCED. CALL LIGHT IN REACH. WILL CONT TO MONITOR.
[2020-08-23 20:00] VITALS: BP 100/55
--- NOTE | 2020-08-23 21:50 | NUR ---
PATIENT RESTING IN BED AT THIS TIME. ACCU-CHECK TONIGHT WAS 451. STAT GLUCOSE WAS DRAWN AND WAS 434. DR. PHAM WAS CALLED WITH RESULTS AND NEW ORDER RECIEVED FOR HUMALOG 20UNITS SQ FOR TONIGHT. HUMALOG 20UNITS GIVEN ORDERED. PATIENT PROVIDED WITH HS SNACK OF CEREAL BAR AND MILK. ASKING FOR ATIVAN FOR SLEEP. LEFT MESSAGE FOR DR. PHAM ON VOICE MAIL. WILL CONT TO MONITOR.
--- NOTE | 2020-08-23 22:30 | NUR ---
PATIENT RESTING INBED-MEDICATED WITH ATIVAN 0.5MG PO FOR SLEEP. CALL LIGHT IN REACH. WILL CONT TO MONITOR.
[2020-08-24 00:41] VITALS: BP 98/52
[2020-08-24 04:00] VITALS: BP 115/55
--- NOTE | 2020-08-24 04:17 | NUR ---
PATIENT RESTING IN BED AT THIS TIME WITH EYES CLOSED. RESPS ARE EVEN AND UNLABORED AT THIS TIME. DOXYCYCLINE HUNG VIA RIGHT AC SITE ORDERED. TELE MONITOR IN PLACE. CALL LIGHT IN REACH. WILL CONT TO MONITOR.
[2020-08-24 05:45] LABS: HEMATOCRIT 37.8 % (37.0-47.0); HEMOGLOBIN 12.1 g/dl (12.0-16.0); IMMATURE GRANULOCYTES 0.4 % (0.0-5.0); MEAN CELL VOLUME 86.7 fL CALC (80.0-100.0); MEAN CORPUSCULAR HGB 27.8 pG CALC (26.0-32.0); NEUT# 3.33 thou/uL (2.00-7.15); RED BLOOD COUNT 4.36 mill/uL (4.20-5.60); RED CELL DISTRI WIDTH 14.4 % (11.5-15.5)
[2020-08-24 06:01] LABS: ALBUMIN 3.1 g/dL (3.2-5.0); ALKALINE PHOSPHATASE 88 u/l (38-126); ANION GAP 9 (6-22 (CALC)); BUN 18 mg/dL (8-23); BUN/CREATININE RATIO 51 (12-20 (CALC)); CALCULATED LDLCHOLESTEROL 112 mg/dL (62-129 (CALC)); CARBON DIOXIDE 25 mmol/l (22-30); CHLORIDE 102 mmol/l (95-108); CHOLESTEROL HDL RATIO 2.7 (<4.4 (CALC)); CREATININE 0.4 mg/dL (0.5-1.0); GFR > 60 ML/MIN (>=60 (CALC)); GFR FOR AFR.AMER. > 60 ML/MIN (>=60 (CALC)); HDL CHOLESTEROL 73 mg/dL (>=40); MAGNESIUM 1.6 mg/dL (1.6-2.3); POTASSIUM 4.3 mmol/l (3.5-5.1); SGOT/AST 44 u/l (9-36); SODIUM 132 mmol/l (137-146); TOTAL CHOLESTEROL 201 mg/dl (0-199); TOTAL TRIGLYCERIDES 79 mg/dl (30-149); VLDL CHOLESTROL 16 mg/dl (1-41 (CALC))
--- NOTE | 2020-08-24 07:10 | NUR ---
REPORT RECEIVED FROM ANTHONY MONAHAN
[2020-08-24 07:30] VITALS: BP 102/54
--- NOTE | 2020-08-24 08:35 | NUR ---
PT RESTING IN SEMI FOWLERS POSITION,A&O X3; VS OBTAINED AND ASSESSMENT COMPLETED;PT REPORTS HEADACHE PAIN, NITRO PATCH REMOVED TO LEFT CHEST;PAIN SCALE AND REPORTING EDUCATED;RESPIRATIONS EVEN AND UNLABORED ON RA,CLEAR LUNG SOUNDS;ABDOMEN DISTENDED/SOFT ON PALPATION AND ACTIVE IN ALL 4 QUADRANTS;WEAK PEDAL PULSES;SKIN INTACT;TELE MONITORING IN PLACE;#20G TO RAC FLUSHED AND PATENT,SITE APPEARS HEALTHY;SELLING NOTED TO LEFT SIDE OF MOUTH;ACCUCHECK 244;PT DENIES ANY ADDITIONAL NEEDS AT THIS TIME AND IS ENCOURAGED TO CALL FOR ASSISTANCE IF NEEDED;FALL PRECAUTIONS IN PLACE WITH BED IN THE LOWEST POSITION AND CALL LIGHT IN REACH;WILL CONTINUE TO MONITOR
--- NOTE | 2020-08-24 09:00 | NUR ---
PT MEDICATED WITH PRN ULTRAM 50MG PO FOR LEFT GROIN PAIN RATING 7/10 ON THE PAIN SCALE,WILL CONTINUE TO MONITOR FOR EFFECTIVENESS
--- NOTE | 2020-08-24 09:53 | NUR ---
AT BEDSIDE DISCUSSING POC.
[2020-08-24] MEDS ORDERED: VIBRAMYCIN100 M2 PO (10:17)
--- NOTE | 2020-08-24 10:50 | NUR ---
ALL DISCHARGE INSTRUCTIONS PROVIDED AT THIS TIME;PT INSTRUCTED TO F/U WITH THIS AFTERNOON, TAKE ALL ROUTINE MEDICATIONS/PAIN MEDICATIONS PRESCRIBED,MONITOR GLUCOSE,TAKE ABX DIRECTED, AND SEE OUTPT FOR A STRESS/ECHO;PT VERBALIZES UNDERSTANDING AND DENIES ANY ADDITIONAL QUESTIONS OR NEEDS;IV SITE REMOVED WITH CATHETER INTACT AND TELE MONITORING D/C AT THIS TIME;HOME MEDICATION PROVIDED BACK FOR D/C HOME;WHEELCHAIR TO BE PROVIDED FOR D/C HOME;PT TO TRANSPORT SELF HOME;WILL CONTINUE TO MONITOR
--- NOTE | 2020-08-24 10:59 | NUR ---
Discharge instructions given. Patient verbalizes understanding of same. Discharged in stable condition via Wheelchair to Home with *Other. All belongings sent with pt. PT TRANSPORTED TO [facility] IN STABLE CONDITION VIA WHEELCHAIR ACCOMPANIED BY ANTHONY SANTIZO;ALL BELONGINGS LEFT WITH PT.PT TO TRANSPORT SELF HOME.
== END 2020-08-24 10:59 | disposition home or self-care (01) ==
LOC: ED 06:16 → ED-I 09:05 → ED 09:21 → MS2 09:22
PROVIDERS: Nurse Practitioner; ADMIT Internal Medicine; ATTEND Internal Medicine
DX: R07.89 Other chest pain (principal); E11.65 Type 2 diabetes mellitus with hyperglycemia; K13.0 Diseases of lips; I10 Essential (primary) hypertension; I25.10 Atherosclerotic heart disease of native coronary artery without angina pectoris; K76.6 Portal hypertension; K74.69 Other cirrhosis of liver; G89.4 Chronic pain syndrome; I25.2 Old myocardial infarction; T38.3X6A Underdosing of insulin and oral hypoglycemic [antidiabetic] drugs, initial encounter; Z91.128 Patient's intentional underdosing of medication regimen for other reason; Z95.1 Presence of aortocoronary bypass graft; Z95.5 Presence of coronary angioplasty implant and graft; Z87.891 Personal history of nicotine dependence; Z86.16 Personal history of COVID-19; Z79.4 Long term (current) use of insulin; Z20.822 Contact with and (suspected) exposure to COVID-19
CPT/HCPCS: G0378; J2060

== ENCOUNTER 2020-11-07 05:43 | Emergency (ER) | payer MEDICARE ==
[~2020-11-07] VITALS: Ht 157.5 cm; Wt 89.0 kg
[~2020-11-07 05:43] MED LIST changes: +FUROSEMIDE20 MG PO; +HUMALOG KW50 MG/50 K SC; +K-TABS10 MEQ PO; +MAGNESIUM OXID400 M1 PO; +MOTRIN400 MG/TAB PO; +OXYCODONE5 M1 PO; +SPIRONOLACT25 MG PO; +VIBRAMYCIN100 M2 PO; +ZOFRAN4 MG/TAB PO
[2020-11-07 06:15] LABS: URINE BILIRUBIN - DIPSTICK NEGATIVE (NEGATIVE); URINE BLOOD DIPSTICK NEGATIVE (NEGATIVE); URINE COLOR YELLOW; URINE GLUCOSE - DIPSTICK NEGATIVE (NEGATIVE); URINE KETONE NEGATIVE (NEGATIVE); URINE LEUK ESTERASE NEGATIVE (NEGATIVE); URINE PH 6.5 (4.5-8.0); URINE PROTEIN - DIPSTICK NEGATIVE (NEG-TRACE); URINE SPECIFIC GRAVITY 1.025
[2020-11-07 06:20] LABS: URINE NITRITE - DIPSTICK NEGATIVE (Negative)
[2020-11-07 06:28] LABS: HEMATOCRIT 42.2 % (37.0-47.0); HEMOGLOBIN 13.8 g/dl (12.0-16.0); IMMATURE GRANULOCYTES 0.3 % (0.0-5.0); MEAN CELL VOLUME 89.2 fL CALC (80.0-100.0); MEAN CORPUSCULAR HGB 29.2 pG CALC (26.0-32.0); MEAN CORPUSCULAR HGB CONC 32.7 g/dL CAL (32.0-36.0); NEUT# 1.97 thou/uL (2.00-7.15); RED BLOOD COUNT 4.73 mill/uL (4.20-5.60); RED CELL DISTRI WIDTH 14.2 % (11.5-15.5)
[2020-11-07 06:36] LABS: D-DIMER 1.94 mg/L (0.19-0.60)
[2020-11-07 06:38] LABS: ALBUMIN 3.6 g/dL (3.2-5.0); ALKALINE PHOSPHATASE 88 u/l (38-126); ANION GAP 10 (6-22 (CALC)); BILIRUBIN, TOTAL 0.7 mg/dL (0.0-1.4); BUN 24 mg/dL (8-23); BUN/CREATININE RATIO 60 (12-20 (CALC)); CARBON DIOXIDE 29 mmol/l (22-30); CHLORIDE 102 mmol/l (95-108); CREATININE 0.4 mg/dL (0.5-1.0); GFR > 60 ML/MIN (>=60 (CALC)); GFR FOR AFR.AMER. > 60 ML/MIN (>=60 (CALC)); POTASSIUM 4.3 mmol/l (3.5-5.1); SGOT/AST 53 u/l (9-36); SODIUM 136 mmol/l (137-146); TOTAL PROTEIN 6.9 g/dL (6.3-8.2)
[2020-11-07 06:45] LABS: ACT PARTIAL THROMBO TIME 25.4 SECONDS (20.0-32.5); INTERNATIONAL NORMALIZED RATIO 1.1 RATIO (0.7-1.3); PROTHROMBIN TIME 11.3 SECONDS (9.0-12.5)
[2020-11-07 06:49] LABS: MYOGLOBIN 19 ng/mL (0 - 62)
[2020-11-07 12:06] VITALS: BP 161/75
== END 2020-11-07 12:15 | disposition home or self-care (01) ==
LOC: ED 05:43
PROVIDERS: Family Medicine
DX: R06.02 Shortness of breath (principal); I10 Essential (primary) hypertension; E11.9 Type 2 diabetes mellitus without complications; E66.9 Obesity, unspecified; Z95.1 Presence of aortocoronary bypass graft; Z86.16 Personal history of COVID-19; Z79.4 Long term (current) use of insulin
CPT/HCPCS: Q9967

== ENCOUNTER 2020-11-17 03:07 | Observation (INO) | payer MEDICARE ==
[~2020-11-17] VITALS: Ht 157.5 cm; Wt 90.0 kg
[2020-11-17 03:46] LABS: URINE BILIRUBIN - DIPSTICK NEGATIVE (NEGATIVE); URINE BLOOD DIPSTICK TRACE-INTACT (NEGATIVE); URINE COLOR YELLOW; URINE GLUCOSE - DIPSTICK >=1000 mg/dL (NEGATIVE); URINE KETONE NEGATIVE (NEGATIVE); URINE LEUK ESTERASE NEGATIVE (NEGATIVE); URINE PROTEIN - DIPSTICK NEGATIVE (NEG-TRACE); URINE SPECIFIC GRAVITY >=1.030
[2020-11-17 03:47] LABS: HEMATOCRIT 42.1 % (37.0-47.0); HEMOGLOBIN 13.9 g/dl (12.0-16.0); IMMATURE GRANULOCYTES 0.2 % (0.0-5.0); MEAN CELL VOLUME 90.1 fL CALC (80.0-100.0); MEAN CORPUSCULAR HGB 29.8 pG CALC (26.0-32.0); NEUT# 2.59 thou/uL (2.00-7.15); RED BLOOD COUNT 4.67 mill/uL (4.20-5.60); RED CELL DISTRI WIDTH 13.7 % (11.5-15.5)
[2020-11-17 03:47] LABS: URINE NITRITE - DIPSTICK NEGATIVE (Negative)
[2020-11-17 04:01] LABS: ALBUMIN 3.9 g/dL (3.2-5.0); ALKALINE PHOSPHATASE 103 u/l (38-126); AMYLASE 112 u/l (30-110); ANION GAP 11 (6-22 (CALC)); BILIRUBIN, TOTAL 0.8 mg/dL (0.0-1.4); BUN 16 mg/dL (8-23); BUN/CREATININE RATIO 37 (12-20 (CALC)); CARBON DIOXIDE 27 mmol/l (22-30); CHLORIDE 101 mmol/l (95-108); CREATININE 0.4 mg/dL (0.5-1.0); GFR > 60 ML/MIN (>=60 (CALC)); GFR FOR AFR.AMER. > 60 ML/MIN (>=60 (CALC)); LIPASE 108 u/l (23-300); POTASSIUM 4.2 mmol/l (3.5-5.1); SGOT/AST 51 u/l (9-36); SODIUM 135 mmol/l (137-146); TOTAL PROTEIN 7.3 g/dL (6.3-8.2)
[2020-11-17 04:03] LABS: D-DIMER 2.97 mg/L (0.19-0.60)
[2020-11-17 04:07] LABS: ACT PARTIAL THROMBO TIME 23.6 SECONDS (20.0-32.5); INTERNATIONAL NORMALIZED RATIO 1.1 RATIO (0.7-1.3); PROTHROMBIN TIME 11.4 SECONDS (9.0-12.5)
[2020-11-17 04:13] LABS: MYOGLOBIN 23 ng/mL (0 - 62)
--- NOTE | 2020-11-17 06:17 | NUR ---
PATIENT AGREES WITH PLAN FOR ADMIT. TELE BOX [id number] IN USE
--- NOTE | 2020-11-17 06:30 | NUR ---
CALLED FLOOR TO GIVE ADMIT REPORT. INFORMED BY ALDA THAT PATIENT IS TO BE ADMITTED AFTER THE DAY SHIFT ARRIVES.
--- NOTE | 2020-11-17 07:26 | NUR ---
REPORT CALLED TO FLOOR BY NOVA CRUZ
--- NOTE | 2020-11-17 08:00 | NUR ---
PT ARRIVED FROM THE ED VIA STREACH. INTO BED WITH ASST. TELE IN PLACE. DENIES ANY TYPE OF PAIN AT THIS TIME. ORIENTED TO THE ROOM CALL LIGHT TV AND TELE PHOME. ALL PATIENT BELONGINGS AT THE BEDSIDE. VS 131/59 95% RA 97.8 TEMP [address] REPOSITIONED FOR COMFORT, SIDE RAILS UP CALL LIGHT IN REACH BED LOCKED IN LOW POSITION, ALL SAFTY MEASURES IN PLACE. WILL CONTINUE TO TR.
--- NOTE | 2020-11-17 08:10 | NUR ---
C/O CP #5 REPORTED TO THE PROVIDER. EKG DONE . NORMAL EKG . WILL CONTINUE TO MONITOR.
--- NOTE | 2020-11-17 10:20 | NUR ---
C/O C/P MED PER ORDER. REPOSITIOEND FOR COMFORT, WILL CONTINUE TO MONIOTR THE PATIENT.
[2020-11-17 10:50] VITALS: BP 119/50
[2020-11-17 10:54] LABS: CHOLESTEROL HDL RATIO 2.4 (<4.4 (CALC)); MAGNESIUM 1.6 mg/dL (1.6-2.3)
--- NOTE | 2020-11-17 11:05 | NUR ---
PT SITTING UP IN THE BED TALKING ON THE PHONE. DENIES C/P AND ANY OTHER PAIN AT THIS TIME. WILL CONTINUE TO MONITOR THE PATIENT.
--- NOTE | 2020-11-17 13:47 | NUR ---
PT RESTING WITH EYES CLOSED IN THE BED. WILL CONTINUE TO MONITOR THE PATIENT.
--- NOTE | 2020-11-17 15:12 | NUR ---
EDUCATED ON LAB DRAWS AND LAB RESULTS. PT RESTING COMOFORTABLE NO COMPALINTS VOICED AT THIS TIME.
[2020-11-17 15:18] VITALS: BP 119/47
--- NOTE | 2020-11-17 17:48 | NUR ---
OUT OF THE BED TO THE BEDSIDE CHAIR FOR DINNER, NO C/O CP AT THIS TIME. CALL LIGHT IN REACH,
[2020-11-17 19:00] VITALS: BP 132/62
--- NOTE | 2020-11-17 20:00 | NUR ---
PHYSICAL ASSESMENT COMPLETE. PT C/O PAIN OR DISCOMFORT. SCHEDULED MEDICATIONS AND PRN MEDICATION ADMINISTERED, SEE E-MAR. PT DENIES ANY NEEDS AT THIS TIME. PLAN OF CARE REVIEWED, PT DENIES QUESTIONS, VERBALIZES UNDERSTANDING. ITEMS WITHIN REACH, BED LOCKED IN LOW POSITION W/ BEDRAILS UP X2. CALL CLEMENT WITHIN REACH, AGREES TO CALL PRN.
[2020-11-18] VITALS: BP 103/54
--- NOTE | 2020-11-18 | NUR ---
PT LAYING IN BED WITH EYES CLOSED, APPEARS TO BE SLEEPING, APPEARS COMFORTABLE AND IN NO DISTRESS. RESPIRATIONS REGULAR AND UNLABORED. ITEMS REMAIN WITHIN REACH, CALL CLEMENT REMAINS WITHIN REACH. BED REMAINS LOCKED AND IN LOW POSITION WITH BEDRAILS UP X2. WILL CONTINUE TO MONITOR.
[2020-11-18 04:00] VITALS: BP 121/62
--- NOTE | 2020-11-18 04:06 | NUR ---
PT RESTING IN BED, NO SIGNS OF DISTRESS NOTED, RESP EVEN AND UNLABORED. PT VOICES NO NEEDS OR COMPLAINTS AT THIS TIME. CALL LIGHT IN REACH, CONTINUE TO MONITOR.
[2020-11-18 05:31] LABS: HEMATOCRIT 38.5 % (37.0-47.0); HEMOGLOBIN 12.6 g/dl (12.0-16.0); MEAN CELL VOLUME 91.4 fL CALC (80.0-100.0); MEAN CORPUSCULAR HGB 29.9 pG CALC (26.0-32.0); MEAN CORPUSCULAR HGB CONC 32.7 g/dL CAL (32.0-36.0); RED BLOOD COUNT 4.21 mill/uL (4.20-5.60); RED CELL DISTRI WIDTH 13.9 % (11.5-15.5)
[2020-11-18 05:32] LABS: ANION GAP 8 (6-22 (CALC)); BUN 18 mg/dL (8-23); BUN/CREATININE RATIO 47 (12-20 (CALC)); CARBON DIOXIDE 28 mmol/l (22-30); CHLORIDE 103 mmol/l (95-108); CREATININE 0.4 mg/dL (0.5-1.0); GFR > 60 ML/MIN (>=60 (CALC)); GFR FOR AFR.AMER. > 60 ML/MIN (>=60 (CALC)); MAGNESIUM 1.6 mg/dL (1.6-2.3); SODIUM 135 mmol/l (137-146)
[2020-11-18 07:47] VITALS: BP 110/62
--- NOTE | 2020-11-18 07:54 | NUR ---
PT RESTING COMFORTABLE IN THE BED, AXOX3, DENIES C/P NO RESP DISTRESS NOTED. EDUCATED ON LAB RESULTS. STATES SHE WOULD LIKE TO GO HOME TODAY. REPOSITIOEND FOR COMFORT, SIDE RAISL UP CALL LIGHT IN REACH BED LOCKED IN LOW POSITION, ALL SAFTY MEASURES IN PLACE, WILL CONTINUE TO MONITOR THE PATIENT.
[2020-11-18 10:15] VITALS: BP 118/65
--- NOTE | 2020-11-18 11:51 | NUR ---
TELE AND HL REMOVED. DISCHARGE ORDERS GIVEN UNDERSTOOD AND SIGNED BY THE PT. PT LEFT WITH A FAMILY MEMBER TO GO TO HER OWN HOME. NO COMPLAINTS FROM THE PT.
== END 2020-11-18 11:50 | disposition home or self-care (01) ==
LOC: ED 03:07 → ED-I 05:50 → ED 06:06 → MS2 06:07
PROVIDERS: Family Medicine; Nurse Practitioner; ADMIT Internal Medicine; ATTEND Internal Medicine
DX: R07.9 Chest pain, unspecified (principal); I10 Essential (primary) hypertension; E11.65 Type 2 diabetes mellitus with hyperglycemia; I25.10 Atherosclerotic heart disease of native coronary artery without angina pectoris; R01.1 Cardiac murmur, unspecified; E78.5 Hyperlipidemia, unspecified; K76.6 Portal hypertension; K57.30 Diverticulosis of large intestine without perforation or abscess without bleeding; K74.60 Unspecified cirrhosis of liver; Z79.4 Long term (current) use of insulin; Z95.1 Presence of aortocoronary bypass graft; Z86.16 Personal history of COVID-19; Z95.5 Presence of coronary angioplasty implant and graft; Z20.822 Contact with and (suspected) exposure to COVID-19
CPT/HCPCS: G0378; J0131; J1650; J3475; Q9967; S0164

== ENCOUNTER 2021-08-06 14:24 | Observation (INO) | payer MEDICARE ==
[~2021-08-06] VITALS: Ht 157.5 cm; Wt 93.4 kg
[2021-08-06 15:14] LABS: HEMATOCRIT 46.7 % (37.0-47.0); HEMOGLOBIN 15.5 g/dl (12.0-16.0); MEAN CELL VOLUME 90.5 fL CALC (80.0-100.0); MEAN CORPUSCULAR HGB CONC 33.2 g/dL CAL (32.0-36.0); NEUT# 3.38 thou/uL (2.00-7.15); RED BLOOD COUNT 5.16 mill/uL (4.20-5.60); RED CELL DISTRI WIDTH 13.1 % (11.5-15.5)
[2021-08-06 15:25] LABS: ALKALINE PHOSPHATASE 105 u/l (38-126); BUN 26 mg/dL (8-23); BUN/CREATININE RATIO 40 (12-20 (CALC)); CARBON DIOXIDE 27 mmol/l (22-30); CHLORIDE 96 mmol/l (95-108); CREATININE 0.6 mg/dL (0.5-1.0); GFR > 60 ML/MIN (>=60 (CALC)); GFR FOR AFR.AMER. > 60 ML/MIN (>=60 (CALC)); SGOT/AST 61 u/l (9-36); SODIUM 131 mmol/l (137-146); TOTAL PROTEIN 7.7 g/dL (6.3-8.2)
[2021-08-06 15:27] LABS: ANION GAP 13 (6-22 (CALC)); POTASSIUM 4.6 mmol/l (3.5-5.1)
[2021-08-06 16:49] LABS: URINE BILIRUBIN - DIPSTICK NEGATIVE (NEGATIVE); URINE BLOOD DIPSTICK NEGATIVE (NEGATIVE); URINE COLOR YELLOW; URINE GLUCOSE - DIPSTICK >=1000 mg/dL (NEGATIVE); URINE KETONE NEGATIVE (NEGATIVE); URINE LEUK ESTERASE NEGATIVE (NEGATIVE); URINE PH 6.5 (4.5-8.0); URINE PROTEIN - DIPSTICK NEGATIVE (NEG-TRACE); URINE SPECIFIC GRAVITY 1.015; URINE UROBILINOGEN - DIPSTICK 0.2 E.U./dL (0.2)
[2021-08-06 16:51] LABS: URINE NITRITE - DIPSTICK NEGATIVE (Negative)
[2021-08-06 20:42] VITALS: BP 146/66
[2021-08-07 00:03] VITALS: BP 139/70
[2021-08-07 04:21] VITALS: BP 152/67
[2021-08-07 07:06] LABS: ANION GAP 9 (6-22 (CALC)); BUN 18 mg/dL (8-23); BUN/CREATININE RATIO 42 (12-20 (CALC)); CALCULATED LDLCHOLESTEROL 101 mg/dL (62-129 (CALC)); CARBON DIOXIDE 27 mmol/l (22-30); CHLORIDE 99 mmol/l (95-108); CHOLESTEROL HDL RATIO 2.2 (<4.4 (CALC)); CREATININE 0.4 mg/dL (0.5-1.0); GFR > 60 ML/MIN (>=60 (CALC)); GFR FOR AFR.AMER. > 60 ML/MIN (>=60 (CALC)); HDL CHOLESTEROL 100 mg/dL (>=40); MAGNESIUM 1.6 mg/dL (1.6-2.3); POTASSIUM 4.2 mmol/l (3.5-5.1); SODIUM 131 mmol/l (137-146); TOTAL CHOLESTEROL 222 mg/dl (0-199); TOTAL TRIGLYCERIDES 102 mg/dl (30-149); VLDL CHOLESTROL 20 mg/dl (1-41 (CALC))
[2021-08-07 10:19] VITALS: BP 110/61
[2021-08-07] MEDS ORDERED: CARAFATE1 GM/10 ML PO ×2 (11:32→12:55)
[2021-08-07] MEDS ORDERED: PANTOPRAZOLE SO40 M1 PO (11:32)
[2021-08-07] MEDS ORDERED: PROTONIX40 M2 PO (12:55)
[2021-08-07 13:06] LABS: HEMATOCRIT 44.4 % (37.0-47.0); HEMOGLOBIN 14.4 g/dl (12.0-16.0); MEAN CELL VOLUME 92.7 fL CALC (80.0-100.0); MEAN CORPUSCULAR HGB 30.1 pG CALC (26.0-32.0); MEAN CORPUSCULAR HGB CONC 32.4 g/dL CAL (32.0-36.0); RED BLOOD COUNT 4.79 mill/uL (4.20-5.60); RED CELL DISTRI WIDTH 13.5 % (11.5-15.5)
== END 2021-08-07 12:21 | disposition home or self-care (01) ==
LOC: ED 14:24 → ED-I 15:52 → ED 15:52 → ED-I 17:30 → ED 17:40 → MS2 17:50
PROVIDERS: Family Medicine; ADMIT Hospitalist; ATTEND Hospitalist
DX: R07.9 Chest pain, unspecified (principal); R10.13 Epigastric pain; E11.65 Type 2 diabetes mellitus with hyperglycemia; I11.0 Hypertensive heart disease with heart failure; I50.42 Chronic combined systolic (congestive) and diastolic (congestive) heart failure; I25.10 Atherosclerotic heart disease of native coronary artery without angina pectoris; K74.60 Unspecified cirrhosis of liver; K76.6 Portal hypertension; E78.5 Hyperlipidemia, unspecified; Z79.4 Long term (current) use of insulin; Z95.5 Presence of coronary angioplasty implant and graft; Z95.1 Presence of aortocoronary bypass graft; Z86.16 Personal history of COVID-19; Z90.49 Acquired absence of other specified parts of digestive tract; Z87.891 Personal history of nicotine dependence; Z20.822 Contact with and (suspected) exposure to COVID-19
CPT/HCPCS: J1650; Q9967